=== PATIENT | male | born 1985 | race Caucasian/White ===

== ENCOUNTER 2019-07-05 23:09 | Emergency (ER) | payer SELFPAY ==
[2019-07-05] MEDS ORDERED: Sodium Chloride 0.9% 10 ML Syringe FLUSH PRN (23:30)
[2019-07-05] MEDS ORDERED: levETIRAcetam 1,000 MG in Sodium Chloride 0.9% 100 ML IV ONE (23:35)
--- NOTE | 2019-07-05 23:41 | EDM.PDOC ---
ED HPI GENERAL MEDICAL PROBLEM - General Chief Complaint: Neurological Problem Stated Complaint: MED[facility] Time Seen by Provider: 07/05/19 23:25 Source of Information: Reports: Patient History Limitations: Reports: Other (no old records) - History of Present Illness INITIAL COMMENTS - FREE TEXT/NARRATIVE: 34 yo male recently moved here from [place] about 2 mos ago. Has a known seizure disorder. Did miss a few doses of his meds lately. Last had a seizure a couple days ago. Normally has seizures at a rate of about 1 per week. With his seizure 2 days ago he was not seen because he was home alone when he had it. Today his roommates were present and they called 911. EMS found him to be postictal as he remained on arrival here in the ER. His roommates did not accompany him to the ER so it is not clear how long the seizure lasted. Onset: Today, Sudden Onset Date: 07/05/19 Duration: Other (unknown) Location: Reports: Generalized Quality: Reports: Other (no pain reported.) Severity: Moderate Improves with: Reports: Other (time, was self-limited) Worsens with: Reports: Other (? missing doses of his meds) Context: Reports: Other (has a known seizure disorder) Associated Symptoms: Reports: No Other Symptoms Treatments STOCKKEEPER: Reports: Other (see below) (none) Other Treatments STOCKKEEPER: none - Related Data Allergies Allergy/AdvReac Type Severity Reaction Status Date / Time No Known Allergies Allergy Verified 07/05/19 23:44 Home Meds: Home Meds ARIPiprazole [Abilify] 2 mg PO DAILY 07/05/19 [History] Aspirin [Ecotrin EC] 81 mg PO DAILY 07/05/19 [History] Divalproex Sodium [Depakote] 125 mg PO BID 07/05/19 [History] atoMOXetine [Strattera] 25 mg PO DAILY 07/05/19 [History] levETIRAcetam [Keppra] 500 mg PO BID 07/05/19 [History] ED ROS GENERAL - Review of Systems Review Of Systems: Comprehensive ROS is negative, except as noted in HPI. Neurological: Reports: Seizure - Physical Exam Exam: See Below Exam Limited By: Other (was initially postictal, is now fully alert) General Appearance: Alert, WD/WN, No Apparent Distress, Obese Eye Exam: Bilateral Eye: Normal Inspection Ears: Normal External Exam, Normal Canal, Hearing Grossly Normal, Normal TMs Nose: Normal Inspection, No Blood Throat/Mouth: Normal Inspection, Normal Lips, Normal Oropharynx, Normal Voice, No Airway Compromise, Evidence of Tongue Biting (tip of tongue) Head Exam: Atraumatic, Normocephalic Neck: Normal Inspection Respiratory/Chest: No Respiratory Distress, Lungs Clear, Normal Breath Sounds, No Accessory Muscle Use Cardiovascular: Regular Rate, Rhythm, No Edema GI/Abdominal: Normal Bowel Sounds, Soft, Non-Tender, No Distention Neuro Exam (Abbreviated): Alert, Oriented, CN II-XII Intact, Normal Cognition, No Motor/Sensory Deficits Back Exam: Normal Inspection Extremities: Normal Inspection, Normal Range of Motion, Non-Tender, No Pedal Edema Psychiatric: Normal Affect, Normal Mood Skin Exam: Warm, Dry, Intact, Normal Color, No Rash Course - Vital Signs Last Recorded V/S: Last Vital Signs Temp 36.8 C 07/05/19 23:19 Pulse 102 H 07/05/19 23:26 Resp 17 07/05/19 23:26 BP 144/82 H 07/05/19 23:26 Pulse Ox 93 L 07/05/19 23:26 - Orders/Labs/Meds Orders: Active Orders 24 hr Category Date Time Status Sodium Chloride 0.9% [Saline Flush] Med 07/05/19 23:30 Active 10 ml FLUSH ASDIRECTED PRN Saline Lock Insert [OM.PC] Routine Oth 07/05/19 23:30 Ordered Medication Orders Sodium Chloride (Saline Flush) 10 ml FLUSH ASDIRECTED PRN PRN Reason: Keep Vein Open Last Admin: 07/05/19 23:47 Dose: 10 ml Labs: Laboratory Tests 07/05/19 Range/Units 23:45 Valproic Acid 9.6 L (50.0-100.0) ug/mL Meds: Medications Generic Name Dose Route Start Last Admin Trade Name Freq PRN Reason Stop Dose Admin Sodium Chloride 10 ml 07/05/19 23:30 07/05/19 23:47 Saline Flush FLUSH 10 ml ASDIRECTED PRN Administration Keep Vein Open Discontinued Medications Generic Name Dose Route Start Last Admin Trade Name Freq PRN Reason Stop Dose Admin Divalproex Sodium 500 mg 07/06/19 00:11 07/06/19 00:30 Divalproex Sodium PO 07/06/19 00:12 500 mg ONETIME ONE Administration Levetiracetam 1,000 mg/ Sodium 110 mls @ 400 mls/hr 07/05/19 23:35 07/05/19 23:46 Chloride IV 07/05/19 23:49 400 mls/hr ONETIME ONE Administration Departure - Departure Time of Disposition: 00:50 Disposition: Home, Self-Care 01 Condition: Fair Clinical Impression: Seizure - Discharge Information *PRESCRIPTION DRUG MONITORING PROGRAM REVIEWED*: No *COPY OF PRESCRIPTION DRUG MONITORING REPORT IN PATIENT ANDREA: No Referrals: PCP,None [Primary Care Provider] - Forms: ED Department Discharge Additional Instructions: Resume your usual medications. Recheck in the clinic [facility] to get established if you haven't already. May needed a dosage adjustment on your meds due to the frequency of the seizures you are having. Return as needed. Sepsis Event Note - Evaluation Sepsis Screening Result: No Definite Risk - Focused Exam Vital Signs: Vital Signs Temp Pulse Resp BP Pulse Ox 07/05/19 23:26 102 H 17 144/82 H 93 L 07/05/19 23:19 36.8 C 102 H 19 144/82 H 94 L Date Exam was Performed: 07/06/19 Time Exam was Performed: 00:39 - My Orders Last 24 Hours: My Active Orders 07/05/19 23:30 Sodium Chloride 0.9% [Saline Flush] 10 ml FLUSH ASDIRECTED PRN Saline Lock Insert [OM.PC] Routine - Assessment/Plan Last 24 Hours: My Active Orders 07/05/19 23:30 Sodium Chloride 0.9% [Saline Flush] 10 ml FLUSH ASDIRECTED PRN Saline Lock Insert [OM.PC] Routine
[2019-07-06] MEDS ORDERED: Divalproex Sodium Delayed-Release 250 MG Tab.CR PO ONE (00:11)
== END 2019-07-06 01:03 | disposition home or self-care (01) ==
LOC: JP.ED 23:09
DX: R56.9 Unspecified convulsions (principal); Z79.899 Other long term (current) drug therapy; Z79.82 Long term (current) use of aspirin
CPT/HCPCS: 36415; 80164; 96374; 99284; A9270; J1953; J7050

== ENCOUNTER 2019-07-21 13:33 | Emergency (ER) | payer MEDICARE, MEDICAID ==
[2019-07-21] MEDS ORDERED: Sodium Chloride 0.9% 10 ML Syringe FLUSH ONE (14:25)
--- NOTE | 2019-07-21 14:27 | EDM.PDOC ---
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 He reports that his symptoms started approximately 4 weeks ago. He noticed increasing shortness of breath, especially with exertion, which has been accompanied by pleuritic left sided posterior chest pain. The pain is not exertional. He has noticed some cough during this time, has been productive of green sputum, no real change with this. He is a pack-a-day smoker. He has no known history of lung disease. No fevers or chills. He seems to be a somewhat unreliable historian. When asked why he is not on anticoagulation for DVT, reports this was stopped several months ago for unknown reasons. He actually may be evicted from his apartment tonight but his breathing had become so bad that he needed to come to the emergency room. Left Back Pain Score (Numeric/FACES): 8 - Related Data Allergies Allergy/AdvReac Type Severity Reaction Status Date / Time No Known Allergies Allergy Verified 07/21/19 13:36 Home Meds: Home Meds ARIPiprazole [Abilify] 2 mg PO DAILY 07/05/19 [History] Aspirin [Ecotrin EC] 81 mg PO DAILY 07/05/19 [History] Divalproex Sodium [Depakote] 125 mg PO BID 07/05/19 [History] atoMOXetine [Strattera] 25 mg PO DAILY 07/05/19 [History] levETIRAcetam [Keppra] 500 mg PO BID 07/05/19 [History] Past Medical History Cardiovascular History: Reports: Hypertension Respiratory History: Reports: Sleep Apnea Other Respiratory History: has cpap does not use Neurological History: Reports: Seizure Other Neuro History: seizures daily/weekly Psychiatric History: Reports: ADHD, Depression Endocrine/Metabolic History: Reports: Obesity/BMI 30+ - Infectious Disease History Infectious Disease History: Reports: Chicken Pox - Past Surgical History Head Surgeries/Procedures: Reports: None Cardiovascular Surgical History: Reports: None Respiratory Surgical History: Reports: None Neurological Surgical History: Reports: None Dermatological Surgical History: Reports: None Social & Family History - Family History Family Medical History: Unobtainable - Tobacco Use Smoking Status *Q: Current Every Day Smoker Years of Tobacco use: 20 Packs/Tins Daily: 1 Used Tobacco, but Quit: No Second Hand Smoke Exposure: Yes - Caffeine Use Caffeine Use: Reports: Coffee, Energy Drinks - Recreational Drug Use Recreational Drug Use: Yes Drug Use in Last 12 Months: Yes Recreational Drug Type: Reports: Marijuana/Hashish Recreational Drug Use Frequency: Daily ED ROS GENERAL - Review of Systems Review Of Systems: See Below Constitutional: Reports: No Symptoms HEENT: Reports: No Symptoms Respiratory: Reports: Shortness of Breath, Pleuritic Chest Pain Cardiovascular: Reports: Chest Pain Endocrine: Reports: No Symptoms GI/Abdominal: Reports: No Symptoms : Reports: No Symptoms Musculoskeletal: Reports: No Symptoms Skin: Reports: No Symptoms Neurological: Reports: No Symptoms Psychiatric: Reports: No Symptoms Hematologic/Lymphatic: Reports: No Symptoms Immunologic: Reports: No Symptoms ED EXAM, GENERAL - Physical Exam Exam: See Below Exam Limited By: No Limitations General Appearance: Alert, No Apparent Distress Ears: Normal External Exam Nose: Normal Inspection Throat/Mouth: Normal Inspection Head: Atraumatic, Normocephalic Neck: Normal Inspection Respiratory/Chest: Lungs Clear Cardiovascular: No Murmur, Tachycardia GI/Abdominal: Soft, Non-Tender Back Exam: Normal Inspection Extremities: Normal Inspection, No Pedal Edema Neurological: Alert, Oriented Psychiatric: Normal Affect, Normal Mood Skin Exam: Warm, Dry Course - Vital Signs Last Recorded V/S: Last Vital Signs Temp 36.7 C 07/21/19 13:39 Pulse 85 07/21/19 15:47 Resp 19 07/21/19 15:47 BP 144/75 H 07/21/19 15:47 Pulse Ox 95 07/21/19 15:47 - Orders/Labs/Meds Orders: Active Orders 24 hr Category Date Time Status EKG Documentation Completion [RC] ASDIRECTED Care 07/21/19 14:27 Active Iopamidol [Isovue-370 (76%)] Med 07/21/19 14:30 Active 100 ml IV . DIRECTED Lactated Ringers [Ringers, Lactated] 1,000 ml Med 07/21/19 15:25 Active IV BOLUS Sodium Chloride 0.9% [Normal Saline] 100 ml Med 07/21/19 14:30 Active IV ASDIRECTED EKG 12 Lead [EK] Routine Ther 07/21/19 14:27 Ordered Medication Orders Sodium Chloride (Normal Saline) 100 mls @ 3 mls/sec IV ASDIRECTED SWAPNIL Last Admin: 07/21/19 14:55 Dose: 3 mls/sec Lactated Ringer's (Ringers, Lactated) 1,000 mls @ 1,000 mls/hr IV BOLUS ONE Stop: 07/21/19 16:24 Last Admin: 07/21/19 15:53 Dose: 1,000 mls/hr Iopamidol (Isovue-370 (76%)) 100 ml IV . DIRECTED SWAPNIL Last Admin: 07/21/19 14:55 Dose: 100 ml Labs: Laboratory Tests 07/21/19 07/21/19 07/21/19 Range/Units 14:33 14:33 14:33 WBC 9.6 (4.5-11.0) K/uL RBC 5.20 (4.30-5.90) M/uL Hgb 15.1 H (12.0-15.0) g/dL Hct 45.3 (40.0-54.0) % MCV 87 (80-98) fL MCH 29 (27-31) pg MCHC 33 (32-36) % Plt Count 237 (150-400) K/uL Sodium 137 L (140-148) mmol/L Potassium 3.9 (3.6-5.2) mmol/L Chloride 102 (100-108) mmol/L Carbon Dioxide 26 (21-32) mmol/L Anion Gap 12.9 (5.0-14.0) mmol/L BUN 18 (7-18) mg/dL Creatinine 1.0 (0.8-1.3) mg/dL Est Cr Clr Drug Dosing 103.10 mL/min Estimated GFR (MDRD) > 60 (>60) Glucose 92 (74-106) mg/dL Calcium 8.9 (8.5-10.1) mg/dL Troponin I < 0.017 (0.000-0.056) ng/mL NT-Pro-B Natriuret Pep 44 (5-125) pg/mL Meds: Medications Generic Name Dose Route Start Last Admin Trade Name Freq PRN Reason Stop Dose Admin Sodium Chloride 100 mls @ 3 mls/sec 07/21/19 14:30 07/21/19 14:55 Normal Saline IV 3 mls/sec ASDIRECTED SWAPNIL Administration Lactated Ringer's 1,000 mls @ 1,000 mls/hr 07/21/19 15:25 07/21/19 15:53 Ringers, Lactated IV 07/21/19 16:24 1,000 mls/hr BOLUS ONE Administration Iopamidol 100 ml 07/21/19 14:30 07/21/19 14:55 Isovue-370 (76%) IV 100 ml . DIRECTED SWAPNIL Administration Discontinued Medications Generic Name Dose Route Start Last Admin Trade Name Freq PRN Reason Stop Dose Admin Sodium Chloride 10 ml 07/21/19 14:25 07/21/19 14:55 Saline Flush FLUSH 07/21/19 14:26 10 ml ONETIME ONE Administration - Re-Assessments/Exams Free Text/Narrative Re-Assessment/Exam: This is a 34-year-old male with history of DVT who presents with pleuritic left- sided chest pain and dyspnea. On exam he is found to tachycardic in the low 100s, O2 sat in the low 90s, stable BP. Pulmonary exam is unremarkable. Given his history of DVT, unclear why he is not anticoagulated at this time, his pretest probability for PE is relatively so will proceed with a CTA of the chest. Additionally we will gather basic labs as well as an EKG. 07/21/19 14:28 Free Text/Narrative Re-Assessment/Exam: Imaging, labs, EKG unremarkable. Trop negative after days of symptoms and this does not sound like ACS Patient know reports that he has been asymptomatic since being in the ED HR normalized with IVF Safe for discharge. Provided albuterol MDI for prn basis 07/21/19 16:12 Departure - Departure Time of Disposition: 16:11 Disposition: Home, Self-Care 01 Clinical Impression: Shortness of breath - Discharge Information *PRESCRIPTION DRUG MONITORING PROGRAM REVIEWED*: No *COPY OF PRESCRIPTION DRUG MONITORING REPORT IN PATIENT ANDREA: No Referrals: PCP,None [Primary Care Provider] - Forms: ED Department Discharge Additional Instructions: We did not find a cause for your symptoms on your evaluation in the ER today Please do a trial of the provided inhaler We have placed a referral for you to get a primary doctor Sepsis Event Note - Evaluation Sepsis Screening Result: No Definite Risk - Focused Exam Vital Signs: Vital Signs Temp Pulse Resp BP Pulse Ox 07/21/19 15:47 85 19 144/75 H 95 07/21/19 15:17 84 140/78 07/21/19 14:26 99 133/81 07/21/19 14:11 102 H 14 128/92 H 85 L 07/21/19 13:58 102 H 13 138/84 96 07/21/19 13:43 107 H 14 138/90 97 07/21/19 13:39 36.7 C 104 H 14 206/87 H 97 07/21/19 13:37 36.7 C 104 H 14 206/87 H 97 Date Exam was Performed: 07/21/19 Time Exam was Performed: 16:10 - My Orders Last 24 Hours: My Active Orders 07/21/19 14:27 EKG Documentation Completion [RC] ASDIRECTED EKG 12 Lead [EK] Routine 07/21/19 14:30 Iopamidol [Isovue-370 (76%)] 100 ml IV . DIRECTED Sodium Chloride 0.9% [Normal Saline] 100 ml IV ASDIRECTED 07/21/19 15:25 Lactated Ringers [Ringers, Lactated] 1,000 ml IV BOLUS - Assessment/Plan Last 24 Hours: My Active Orders 07/21/19 14:27 EKG Documentation Completion [RC] ASDIRECTED EKG 12 Lead [EK] Routine 07/21/19 14:30 Iopamidol [Isovue-370 (76%)] 100 ml IV . DIRECTED Sodium Chloride 0.9% [Normal Saline] 100 ml IV ASDIRECTED 07/21/19 15:25 Lactated Ringers [Ringers, Lactated] 1,000 ml IV BOLUS
[2019-07-21] MEDS ORDERED: Sodium Chloride 0.9% 100 ML IV SCH (14:30)
[2019-07-21] MEDS ORDERED: Iopamidol 755 Mg/ML 100 ML Bottle IV SCH (14:30)
--- NOTE | 2019-07-21 15:23 | CRLCT ---
INDICATION: Left posterior pleuritic chest pain, dyspnea COMPARISON: None TECHNIQUE: Contrast enhanced axial CT imaging through the chest, optimized for assessment of the pulmonary arterial tree. 100 mL Isovue 370 contrast agent was administered intravenously. Sagittal and coronal reconstructions are provided. FINDINGS: There is adequate opacification of the pulmonary arterial tree without evidence of thromboembolism. There is normal caliber of the main pulmonary artery and thoracic aorta. The heart is normal in size. There is no pericardial effusion. There is no mediastinal lymphadenopathy. The lungs are clear. There is no pleural effusion or pneumothorax. The included osseous structures are unremarkable. In the upper abdomen, note is made of diffusely decreased attenuation of the liver parenchyma, compatible with steatosis IMPRESSION: 1. No evidence of pulmonary thromboembolism or other acute intrathoracic process. 2. Hepatic steatosis. Please note that all CT scans at this facility use dose modulation, iterative reconstruction, and/or weight-based dosing when appropriate to reduce radiation dose to as low as reasonably achievable. Dictated by Donald Leavitt MD @ Jul 21 2019 3:16PM Signed by Dr. Donald Leavitt @ Jul 21 2019 3:22PM
[2019-07-21] MEDS ORDERED: Lactated Ringers 1,000 ML IV ONE (15:25)
[2019-07-21] MEDS ORDERED: Albuterol 8 GM Inhaler INH ONE (16:13)
== END 2019-07-21 16:43 | disposition home or self-care (01) ==
LOC: JP.ED 13:33
DX: R06.02 Shortness of breath (principal); I10 Essential (primary) hypertension; F17.210 Nicotine dependence, cigarettes, uncomplicated; Z79.899 Other long term (current) drug therapy; Z79.82 Long term (current) use of aspirin
CPT/HCPCS: 36415; 71275; 80048; 83880; 84484; 85027; 93005; 93010; 94640; 96360; 99284; 99285; A9270; J7050; J7120; Q9967

== ENCOUNTER 2019-08-05 11:20 | Emergency (ER) | payer MEDICAID, OTHER ==
--- NOTE | 2019-08-05 12:35 | EDM.PDOC ---
ED HPI GENERAL MEDICAL PROBLEM - General Chief Complaint: Respiratory Problem Stated Complaint: MEDICAL [facility]IA [facility] Time Seen by Provider: 08/05/19 12:35 Source of Information: Reports: Patient History Limitations: Reports: No Limitations - History of Present Illness INITIAL COMMENTS - FREE TEXT/NARRATIVE: pt arrived from work by ambulance. He was not able to get his breath. He feels the cold air aggrivatd the problem. He had a similar episode 2 weeks ago. Onset: Today, Sudden Duration: Hour(s): Location: Reports: Chest, Generalized Associated Symptoms: Reports: Cough, Shortness of Breath, Other (pt has a history of sleep apnea. ) Chest Pain Score (Numeric/FACES): 1 - Related Data Allergies Allergy/AdvReac Type Severity Reaction Status Date / Time No Known Allergies Allergy Verified 08/05/19 11:21 Home Meds: Home Meds ARIPiprazole [Abilify] 2 mg PO DAILY 07/05/19 [History] Aspirin [Ecotrin EC] 81 mg PO DAILY 07/05/19 [History] Divalproex Sodium [Depakote] 125 mg PO BID 07/05/19 [History] atoMOXetine [Strattera] 25 mg PO DAILY 07/05/19 [History] levETIRAcetam [Keppra] 500 mg PO BID 07/05/19 [History] Albuterol [Ventolin HFA] 1 gm IH QID PRN 08/05/19 [History] Past Medical History Cardiovascular History: Reports: Hypertension Respiratory History: Reports: Sleep Apnea Other Respiratory History: has cpap does not use Neurological History: Reports: Seizure Other Neuro History: seizures daily/weekly Psychiatric History: Reports: ADHD, Depression Endocrine/Metabolic History: Reports: Obesity/BMI 30+ - Infectious Disease History Infectious Disease History: Reports: Chicken Pox - Past Surgical History Head Surgeries/Procedures: Reports: None Cardiovascular Surgical History: Reports: None Respiratory Surgical History: Reports: None Endocrine Surgical History: Reports: None Neurological Surgical History: Reports: None Dermatological Surgical History: Reports: None Social & Family History - Family History Family Medical History: Unobtainable - Tobacco Use Smoking Status *Q: Current Every Day Smoker Years of Tobacco use: 15 Packs/Tins Daily: 1 Used Tobacco, but Quit: No Second Hand Smoke Exposure: Yes - Caffeine Use Caffeine Use: Reports: Coffee, Energy Drinks - Recreational Drug Use Recreational Drug Use: Yes Recreational Drug Type: Reports: Marijuana/Hashish Recreational Drug Use Frequency: Daily ED ROS GENERAL - Review of Systems Review Of Systems: See Below Constitutional: Reports: Chills, Malaise, Weakness, Diaphoresis HEENT: Reports: No Symptoms Respiratory: Reports: Shortness of Breath, Wheezing, Cough Cardiovascular: Reports: No Symptoms Endocrine: Reports: No Symptoms GI/Abdominal: Reports: No Symptoms : Reports: No Symptoms Musculoskeletal: Reports: No Symptoms Skin: Reports: No Symptoms ED EXAM, GENERAL - Physical Exam Exam: See Below Free Text/Narrative:: pt arrived after having a episode of sob at work. He went into a coughing spell and he couldn,t stop. He felt very sob. . He was very diaphoretic at that time. Exam Limited By: Respiratory Distress General Appearance: Alert, Anxious, Moderate Distress Ears: Normal TMs Nose: Normal Inspection Throat/Mouth: Normal Inspection Head: Atraumatic Neck: Normal Inspection Respiratory/Chest: Decreased Breath Sounds, Rhonchi, Wheezing, Other ( this was noted at the rt lower lung field. His wbc is not elevated. ) Cardiovascular: Regular Rate, Rhythm, Tachycardia GI/Abdominal: Soft, Non-Tender (Male) Exam: Deferred Rectal (Males) Exam: Deferred Back Exam: Normal Inspection Extremities: Normal Inspection Neurological: Alert, Oriented, Normal Cognition, Other (pt has known sleep apnea which he is not been doing a good job with using his equipment) Psychiatric: Normal Affect Course - Vital Signs Last Recorded V/S: Last Vital Signs Temp 36.0 C 08/05/19 15:02 Pulse 89 08/05/19 16:49 Resp 12 08/05/19 16:49 BP 145/77 H 08/05/19 16:49 Pulse Ox 95 08/05/19 16:49 - Orders/Labs/Meds Labs: Laboratory Tests 08/05/19 08/05/19 08/05/19 Range/Units 12:35 12:40 12:41 WBC (4.5-11.0) K/uL RBC (4.30-5.90) M/uL Hgb (12.0-15.0) g/dL Hct (40.0-54.0) % MCV (80-98) fL MCH (27-31) pg MCHC (32-36) % Plt Count (150-400) K/uL Neut % (Auto) (36-66) % Lymph % (Auto) (24-44) % [place] % (Auto) (2-6) % Eos % (Auto) (2-4) % Baso % (Auto) (0-1) % D-Dimer, Quantitative (0.0-400.0) ng/mL ABG Hemoglobin 13.8 (13.5-18.0) g/dL ABG Oxyhemoglobin 59.9 % ABG Carboxyhemoglobin 2.2 H (0.0-1.6) % ABG Methemoglobin 0.8 % VBG pH 7.437 (7.350-7.450) VBG pCO2 38.8 mm/Hg VBG pO2 33.8 mm/Hg VBG HCO3 25.7 mmol/L VBG Total CO2 22.8 mmol/L VBG O2 Saturation 61.8 VBG O2 Content 11.6 %vol VBG Base Excess 2.0 mm/L O2 Delivery Device Room air Sodium (140-148) mmol/L Potassium (3.6-5.2) mmol/L Chloride (100-108) mmol/L Carbon Dioxide (21-32) mmol/L Anion Gap (5.0-14.0) mmol/L BUN (7-18) mg/dL Creatinine (0.8-1.3) mg/dL Est Cr Clr Drug Dosing mL/min Estimated GFR (MDRD) (>60) Glucose (74-106) mg/dL Calcium (8.5-10.1) mg/dL Total Bilirubin (0.2-1.0) mg/dL AST (15-37) U/L ALT (12-78) U/L Alkaline Phosphatase (46-116) U/L Total Protein (6.4-8.2) g/dL Albumin (3.4-5.0) g/dL Globulin (2.3-3.5) g/dL Albumin/Globulin Ratio (1.2-2.2) Urine Color Yellow (YELLOW) Urine Appearance Clear (CLEAR) Urine pH 5.5 (5.0-8.0) Ur Specific Pace 1.015 (1.008-1.030) Urine Protein Negative (NEGATIVE) mg/dL Urine Glucose (UA) Negative (NEGATIVE) mg/dL Urine Ketones Negative (NEGATIVE) mg/dL Urine Occult Blood Negative (NEGATIVE) Urine Nitrite Negative (NEGATIVE) Urine Bilirubin Negative (NEGATIVE) Urine Urobilinogen 0.2 (0.2-1.0) EU/dL Ur Leukocyte Esterase Negative (NEGATIVE) Urine RBC Not seen (0-5) Urine WBC Not seen (0-5) Ur Epithelial Cells Not seen Amorphous Sediment Rare Urine Bacteria Not seen Urine Mucus Not seen Urine Opiates Screen (NEGATIVE) Ur Oxycodone Screen (NEGATIVE) Urine Methadone Screen (NEGATIVE) Ur Propoxyphene Screen (NEGATIVE) Ur Barbiturates Screen (NEGATIVE) Valproic Acid 50.9 (50.0-100.0) ug/mL Ur Tricyclics Screen (NEGATIVE) Levetiracetam (10.0-40.0) ug/mL Ur Phencyclidine Scrn (NEGATIVE) Ur Amphetamine Screen (NEGATIVE) U Methamphetamines Scrn (NEGATIVE) Urine MDMA Screen (NEGATIVE) U Benzodiazepines Scrn (NEGATIVE) U Cocaine Metab Screen (NEGATIVE) U Marijuana (THC) Screen (NEGATIVE) 08/05/19 08/05/19 08/05/19 Range/Units 12:41 12:48 12:48 WBC 7.3 (4.5-11.0) K/uL RBC 4.55 (4.30-5.90) M/uL Hgb 13.2 (12.0-15.0) g/dL Hct 40.5 (40.0-54.0) % MCV 89 (80-98) fL MCH 29 (27-31) pg MCHC 33 (32-36) % Plt Count 348 (150-400) K/uL Neut % (Auto) 65 (36-66) % Lymph % (Auto) 25 (24-44) % [place] % (Auto) 8 H (2-6) % Eos % (Auto) 1 L (2-4) % Baso % (Auto) 1 (0-1) % D-Dimer, Quantitative (0.0-400.0) ng/mL ABG Hemoglobin (13.5-18.0) g/dL ABG Oxyhemoglobin % ABG Carboxyhemoglobin (0.0-1.6) % ABG Methemoglobin % VBG pH (7.350-7.450) VBG pCO2 mm/Hg VBG pO2 mm/Hg VBG HCO3 mmol/L VBG Total CO2 mmol/L VBG O2 Saturation VBG O2 Content %vol VBG Base Excess mm/L O2 Delivery Device Sodium 139 L (140-148) mmol/L Potassium 4.5 (3.6-5.2) mmol/L Chloride 101 (100-108) mmol/L Carbon Dioxide 27 (21-32) mmol/L Anion Gap 15.5 H (5.0-14.0) mmol/L BUN 14 (7-18) mg/dL Creatinine 0.9 (0.8-1.3) mg/dL Est Cr Clr Drug Dosing 114.56 mL/min Estimated GFR (MDRD) > 60 (>60) Glucose 74 (74-106) mg/dL Calcium 8.9 (8.5-10.1) mg/dL Total Bilirubin 0.2 (0.2-1.0) mg/dL AST 35 (15-37) U/L ALT 63 (12-78) U/L Alkaline Phosphatase 61 (46-116) U/L Total Protein 8.2 (6.4-8.2) g/dL Albumin 3.3 L (3.4-5.0) g/dL Globulin 4.9 H (2.3-3.5) g/dL Albumin/Globulin Ratio 0.7 L (1.2-2.2) Urine Color (YELLOW) Urine Appearance (CLEAR) Urine pH (5.0-8.0) Ur Specific Pace (1.008-1.030) Urine Protein (NEGATIVE) mg/dL Urine Glucose (UA) (NEGATIVE) mg/dL Urine Ketones (NEGATIVE) mg/dL Urine Occult Blood (NEGATIVE) Urine Nitrite (NEGATIVE) Urine Bilirubin (NEGATIVE) Urine Urobilinogen (0.2-1.0) EU/dL Ur Leukocyte Esterase (NEGATIVE) Urine RBC (0-5) Urine WBC (0-5) Ur Epithelial Cells Amorphous Sediment Urine Bacteria Urine Mucus Urine Opiates Screen Negative (NEGATIVE) Ur Oxycodone Screen Negative (NEGATIVE) Urine Methadone Screen Negative (NEGATIVE) Ur Propoxyphene Screen Negative (NEGATIVE) Ur Barbiturates Screen Negative (NEGATIVE) Valproic Acid (50.0-100.0) ug/mL Ur Tricyclics Screen Negative (NEGATIVE) Levetiracetam (10.0-40.0) ug/mL Ur Phencyclidine Scrn Negative (NEGATIVE) Ur Amphetamine Screen Negative (NEGATIVE) U Methamphetamines Scrn Negative (NEGATIVE) Urine MDMA Screen Negative (NEGATIVE) U Benzodiazepines Scrn Negative (NEGATIVE) U Cocaine Metab Screen Negative (NEGATIVE) U Marijuana (THC) Screen Negative (NEGATIVE) 08/05/19 08/05/19 Range/Units 12:48 13:08 WBC (4.5-11.0) K/uL RBC (4.30-5.90) M/uL Hgb (12.0-15.0) g/dL Hct (40.0-54.0) % MCV (80-98) fL MCH (27-31) pg MCHC (32-36) % Plt Count (150-400) K/uL Neut % (Auto) (36-66) % Lymph % (Auto) (24-44) % [place] % (Auto) (2-6) % Eos % (Auto) (2-4) % Baso % (Auto) (0-1) % D-Dimer, Quantitative 929 H (0.0-400.0) ng/mL ABG Hemoglobin (13.5-18.0) g/dL ABG Oxyhemoglobin % ABG Carboxyhemoglobin (0.0-1.6) % ABG Methemoglobin % VBG pH (7.350-7.450) VBG pCO2 mm/Hg VBG pO2 mm/Hg VBG HCO3 mmol/L VBG Total CO2 mmol/L VBG O2 Saturation VBG O2 Content %vol VBG Base Excess mm/L O2 Delivery Device Sodium (140-148) mmol/L Potassium (3.6-5.2) mmol/L Chloride (100-108) mmol/L Carbon Dioxide (21-32) mmol/L Anion Gap (5.0-14.0) mmol/L BUN (7-18) mg/dL Creatinine (0.8-1.3) mg/dL Est Cr Clr Drug Dosing mL/min Estimated GFR (MDRD) (>60) Glucose (74-106) mg/dL Calcium (8.5-10.1) mg/dL Total Bilirubin (0.2-1.0) mg/dL AST (15-37) U/L ALT (12-78) U/L Alkaline Phosphatase (46-116) U/L Total Protein (6.4-8.2) g/dL Albumin (3.4-5.0) g/dL Globulin (2.3-3.5) g/dL Albumin/Globulin Ratio (1.2-2.2) Urine Color (YELLOW) Urine Appearance (CLEAR) Urine pH (5.0-8.0) Ur Specific Pace (1.008-1.030) Urine Protein (NEGATIVE) mg/dL Urine Glucose (UA) (NEGATIVE) mg/dL Urine Ketones (NEGATIVE) mg/dL Urine Occult Blood (NEGATIVE) Urine Nitrite (NEGATIVE) Urine Bilirubin (NEGATIVE) Urine Urobilinogen (0.2-1.0) EU/dL Ur Leukocyte Esterase (NEGATIVE) Urine RBC (0-5) Urine WBC (0-5) Ur Epithelial Cells Amorphous Sediment Urine Bacteria Urine Mucus Urine Opiates Screen (NEGATIVE) Ur Oxycodone Screen (NEGATIVE) Urine Methadone Screen (NEGATIVE) Ur Propoxyphene Screen (NEGATIVE) Ur Barbiturates Screen (NEGATIVE) Valproic Acid (50.0-100.0) ug/mL Ur Tricyclics Screen (NEGATIVE) Levetiracetam 11.4 (10.0-40.0) ug/mL Ur Phencyclidine Scrn (NEGATIVE) Ur Amphetamine Screen (NEGATIVE) U Methamphetamines Scrn (NEGATIVE) Urine MDMA Screen (NEGATIVE) U Benzodiazepines Scrn (NEGATIVE) U Cocaine Metab Screen (NEGATIVE) U Marijuana (THC) Screen (NEGATIVE) Meds: Medications Discontinued Medications Generic Name Dose Route Start Last Admin Trade Name Freq PRN Reason Stop Dose Admin Albuterol 2.5 mg 08/05/19 13:28 08/05/19 13:56 Proventil [facility] 08/05/19 13:29 2.5 mg ONETIME ONE Administration Albuterol 2.5 mg 08/05/19 15:04 08/05/19 15:22 Proventil Neb Soln [facility] 08/05/19 15:05 2.5 mg ONETIME ONE Administration Sodium Chloride 1,000 mls @ 999 mls/hr 08/05/19 15:00 08/05/19 15:21 Normal Saline IV 999 mls/hr ASDIRECTED SWAPNIL Administration Ceftriaxone Sodium 1 gm/ 50 mls @ 100 mls/hr 08/05/19 15:35 08/05/19 16:02 Sodium Chloride IV 08/05/19 16:04 100 mls/hr ONETIME ONE Administration - Re-Assessments/Exams Free Text/Narrative Re-Assessment/Exam: 08/05/19 15:12 pt had a wbc which was 4,500 He has had a marked cough. He has a known seizure disorder and does not think he has had recent seizures. His o2 sats have been in the low 90s. He has been very diaphoretic. He has had several episodes where he has gotten sob.pt thus far has not been very compliant with his meds. 08/05/19 15:39 Departure - Departure Time of Disposition: 15:15 Disposition: Home, Self-Care 01 Condition: Fair Clinical Impression: Right lower lobe pneumonia, Sleep apnea, Seizure disorder - Discharge Information Instructions: Community-Acquired Pneumonia, Adult, [id number] Referrals: PCP,None [Primary Care Provider] - Forms: ED Department Discharge Care Plan Goals: albuterol neb q6h, robitussin ac 1-2 tsp as needed for cough--q6h, zithromax 500 mg now and then 250 daily for 6 days, [id number] bid, no work for thr next 3 days, use the sleep apnea equipment regularly, push fluids, continue with seizure meds as ordered. stop vaping. Hospital admission was discussed with the hospitalist and he felt that we should try as an outpt. he was refered to Dr Golden. Sepsis Event Note - Evaluation Sepsis Screening Result: No Definite Risk - Focused Exam Date Exam was Performed: 08/08/19 Time Exam was Performed: 10:09
[2019-08-05] MEDS ORDERED: Albuterol 0.083% 2.5 MG/3 ML Neb Soln NEB ONE ×2 (13:28→15:04)
--- NOTE | 2019-08-05 14:49 | CRLCR ---
INDICATION: Shortness of breath. TECHNIQUE: Two views of the chest PA and lateral. COMPARISON: Prior CT of the chest 07/21/2019. FINDINGS: External monitoring leads are seen overlying the patient. Heart and mediastinum are unchanged. There is a large consolidation at the right lung base predominantly within the right lower lobe suspicious for acute pneumonia. No significant pleural effusions or pneumothorax. IMPRESSION: Large consolidation right lung base suspicious for acute pneumonia. Dictated by Anil Collado MD @ Aug 05 2019 2:46PM Signed by Dr. Anil Collado @ Aug 05 2019 2:49PM
[2019-08-05] MEDS ORDERED: Sodium Chloride 0.9% 1,000 ML IV SCH (15:00)
[2019-08-05] MEDS ORDERED: cefTRIAXone 1 GM in Sodium Chloride 0.9% 50 ML IV ONE (15:35)
== END 2019-08-05 16:59 | disposition home or self-care (01) ==
LOC: JP.ED 11:20
DX: G40.909 Epilepsy, unspecified, not intractable, without status epilepticus (principal); J18.9 Pneumonia, unspecified organism; G47.30 Sleep apnea, unspecified; I10 Essential (primary) hypertension; F17.210 Nicotine dependence, cigarettes, uncomplicated; Z79.82 Long term (current) use of aspirin; Z79.899 Other long term (current) drug therapy
CPT/HCPCS: 36415; 71046; 80053; 80164; 80177; 80305; 81001; 82803; 85025; 85379; 87804; 94640; 96361; 96365; 99285; J0696; J7030; J7050

== ENCOUNTER 2019-08-24 17:42 | Emergency (ER) | payer MEDICARE, MEDICAID ==
[2019-08-24] MEDS ORDERED: fentaNYL 100 MCG/2 ML SDV ONE (18:04)
[2019-08-24] MEDS ORDERED: Sodium Chloride 0.9% 10 ML Syringe FLUSH ONE (18:16)
[2019-08-24] MEDS ORDERED: fentaNYL 100 MCG/2 ML SDV IVPUSH ONE (18:18)
[2019-08-24] MEDS ORDERED: Iopamidol 612 MG/ML 100 ML Bottle IV SCH (18:30)
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
--- NOTE | 2019-08-25 08:46 | CR ---
CHEST: Portable to 10/09/2019 at 0605 CLINICAL HISTORY:Trauma COMPARISON:08/05/2019 FINDINGS: Heart size and pulmonary vascularity are normal. There is less than optimal inspiration which exaggerates the basal lung markings. There is some minimal residual patchy density in the right lower lobe from previous pneumonia seen earlier. No pleural effusion or pneumothorax seen. Impression: Limited portable chest Minimal residual patchy density right lower lobe
== END 2019-08-24 20:15 | disposition home or self-care (01) ==
LOC: JP.ED 17:42
DX: S22.41XA Multiple fractures of ribs, right side, 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 for closed fracture (principal); I10 Essential (primary) hypertension; F32.9 Major depressive disorder, single episode, unspecified; F90.9 Attention-deficit hyperactivity disorder, unspecified type; G40.909 Epilepsy, unspecified, not intractable, without status epilepticus; E66.9 Obesity, unspecified; Z68.41 Body mass index [BMI] 40.0-44.9, adult; Z79.82 Long term (current) use of aspirin; Z79.899 Other long term (current) drug therapy; V86.52XA Driver of snowmobile injured in nontraffic accident, 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
CPT/HCPCS: 36415; 70450; 71045; 71260; 74177; 80053; 85027; 85610; 86850; 86900; 86901; 96374; 99285; J3010; J7050; Q9967

== ENCOUNTER 2019-08-30 01:03 | Emergency (ER) | payer MEDICARE, MEDICAID ==
[2019-08-30] MEDS ORDERED: Ketorolac 60 MG/2 ML SDV IM ONE (01:23)
[2019-08-30] MEDS ORDERED: Acetaminophen/HYDROcodone 325-5 MG Tab PO ONE (01:23)
--- NOTE | 2019-08-30 01:36 | EDM.PDOC ---
ED HPI GENERAL MEDICAL PROBLEM - General Chief Complaint: General Stated Complaint: MEDICAL VIA NORTH Time Seen by Provider: 08/30/19 01:25 Source of Information: Reports: Patient, EMS, Old Records History Limitations: Reports: No Limitations - History of Present Illness INITIAL COMMENTS - FREE TEXT/NARRATIVE: 34 yo male arrives via EMS for evaluation of R sided rib pain. He was here about a week ago and was given a few pain pills for rib fx's dx on that visit. He is a smoker and notes that the pain is severe with coughing. Has not followed up in the clinic. Is out of his pain meds. Not SOB. No fever. Onset: Sudden Onset Date: 08/24/19 Duration: Day(s):, Getting Worse Location: Reports: Chest (R side) Quality: Reports: Sharp Severity: Severe Improves with: Reports: Medication Worsens with: Reports: Movement Context: Reports: Trauma Associated Symptoms: Reports: No Other Symptoms Treatments CHARGE LPN: Reports: Other (see below) (OTC analgesia) Left Chest Pain Score (Numeric/FACES): 10 - Related Data Allergies Allergy/AdvReac Type Severity Reaction Status Date / Time No Known Allergies Allergy Verified 08/30/19 01:20 Home Meds: Home Meds ARIPiprazole [Abilify] 2 mg PO DAILY 07/05/19 [History] Aspirin [Ecotrin EC] 81 mg PO DAILY 07/05/19 [History] Divalproex Sodium [Depakote] 125 mg PO BID 07/05/19 [History] atoMOXetine [Strattera] 25 mg PO DAILY 07/05/19 [History] levETIRAcetam [Keppra] 500 mg PO BID 07/05/19 [History] Albuterol [Ventolin HFA] 1 gm IH QID PRN 08/05/19 [History] Past Medical History Cardiovascular History: Reports: Hypertension Respiratory History: Reports: Sleep Apnea Other Respiratory History: has cpap does not use Neurological History: Reports: Seizure Other Neuro History: seizures daily/weekly Psychiatric History: Reports: ADHD, Depression Endocrine/Metabolic History: Reports: Obesity/BMI 30+ - Infectious Disease History Infectious Disease History: Reports: Chicken Pox - Past Surgical History Head Surgeries/Procedures: Reports: None Cardiovascular Surgical History: Reports: None Respiratory Surgical History: Reports: None Endocrine Surgical History: Reports: None Neurological Surgical History: Reports: None Dermatological Surgical History: Reports: None Social & Family History - Family History Family Medical History: Unobtainable - Tobacco Use Smoking Status *Q: Current Every Day Smoker Years of Tobacco use: 20 Packs/Tins Daily: 1 Used Tobacco, but Quit: No Second Hand Smoke Exposure: Yes - Caffeine Use Caffeine Use: Reports: Soda - Recreational Drug Use Recreational Drug Use: No ED ROS GENERAL - Review of Systems Review Of Systems: See Below Constitutional: Reports: No Symptoms HEENT: Reports: No Symptoms Respiratory: Reports: Pleuritic Chest Pain, Cough (chronic, smoker). Denies: Sputum Cardiovascular: Reports: No Symptoms GI/Abdominal: Reports: No Symptoms : Reports: No Symptoms Musculoskeletal: Reports: No Symptoms Skin: Reports: No Symptoms Neurological: Reports: No Symptoms ED EXAM, GENERAL - Physical Exam Exam: See Below Exam Limited By: No Limitations General Appearance: Alert, WD/WN, No Apparent Distress Eye Exam: Bilateral Eye: Normal Inspection Ears: Normal External Exam, Normal Canal, Hearing Grossly Normal Ear Exam: Bilateral Ear: Auricle Normal, Canal Normal Nose: Normal Inspection, No Blood Throat/Mouth: Normal Inspection, Normal Lips, Normal Oropharynx, Normal Voice, No Airway Compromise Head: Atraumatic, Normocephalic Neck: Normal Inspection Respiratory/Chest: No Respiratory Distress, Lungs Clear, Normal Breath Sounds, No Accessory Muscle Use Cardiovascular: Regular Rate, Rhythm, No Edema Back Exam: Normal Inspection. No: CVA Tenderness (R), CVA Tenderness (L) Extremities: Normal Inspection, Normal Range of Motion, Non-Tender, No Pedal Edema Neurological: Alert, Oriented, CN II-XII Intact, Normal Cognition, No Motor/ Sensory Deficits Psychiatric: Normal Affect, Normal Mood Skin Exam: Warm, Dry, Intact, Normal Color, No Rash Course - Vital Signs Last Recorded V/S: Last Vital Signs Temp 36.2 C 08/30/19 01:19 Pulse 94 08/30/19 01:19 Resp 16 08/30/19 01:19 BP 140/85 08/30/19 01:19 Pulse Ox 96 08/30/19 01:19 - Orders/Labs/Meds Meds: Medications Discontinued Medications Generic Name Dose Route Start Last Admin Trade Name Freq PRN Reason Stop Dose Admin Hydrocodone Bitart/Acetaminophen 1 tab 08/30/19 01:23 08/30/19 01:33 [place] 325-5 Mg PO 08/30/19 01:24 1 tab ONETIME ONE Administration Ketorolac Tromethamine 60 mg 08/30/19 01:23 08/30/19 01:34 Toradol IM 08/30/19 01:24 60 mg ONETIME ONE Administration Departure - Departure Time of Disposition: 02:25 Disposition: Home, Self-Care 01 Condition: Fair Clinical Impression: Ribs, multiple fractures Qualifiers: Encounter type: subsequent encounter Fracture type: closed Laterality: right Fracture healing: with routine healing Qualified Code(s): S22.41XD - Multiple fractures of ribs, right side, subsequent encounter for fracture with routine healing - Discharge Information *PRESCRIPTION DRUG MONITORING PROGRAM REVIEWED*: No *COPY OF PRESCRIPTION DRUG MONITORING REPORT IN PATIENT ANDREA: No Referrals: PCP,None [Primary Care Provider] - Forms: ED Department Discharge Additional Instructions: Take ibuprofen 600 mg every 6 hrs with food for pain relief. Add acetaminophen up to 1000 mg every 6 hrs for added relief. If still more pain relief is required, substitute [place] for acetaminophen. No smoking. Recheck in the clinic this next week. Activity as tolerated. Sepsis Event Note - Evaluation Sepsis Screening Result: No Definite Risk - Focused Exam Vital Signs: Vital Signs Temp Pulse Resp BP Pulse Ox 08/30/19 01:19 36.2 C 94 16 140/85 96 Date Exam was Performed: 08/30/19 Time Exam was Performed: 02:25
== END 2019-08-30 02:20 | disposition home or self-care (01) ==
LOC: JP.ED 01:03
DX: S22.41XD Multiple fractures of ribs, right side, subsequent encounter for fracture with routine healing (principal); E66.9 Obesity, unspecified; G40.909 Epilepsy, unspecified, not intractable, without status epilepticus; I10 Essential (primary) hypertension; F90.9 Attention-deficit hyperactivity disorder, unspecified type; F17.210 Nicotine dependence, cigarettes, uncomplicated; Z79.82 Long term (current) use of aspirin; Z79.899 Other long term (current) drug therapy; Z68.41 Body mass index [BMI] 40.0-44.9, adult; V86.92XD Unspecified occupant of snowmobile injured in nontraffic accident, subsequent encounter
CPT/HCPCS: 96372; 99283; A9270-GY; J1885

== ENCOUNTER 2019-11-09 09:10 | Emergency (ER) | payer MEDICARE, MEDICAID ==
--- NOTE | 2019-11-09 09:47 | EDM.PDOC ---
ED HPI GENERAL MEDICAL PROBLEM - General Chief Complaint: Lower Extremity Injury/Pain Stated Complaint: LEFT LEG PAIN CLINIC AT BLOOD CLOTS Time Seen by Provider: 11/09/19 09:35 Source of Information: Reports: Patient, Old Records, RN History Limitations: Reports: No Limitations - History of Present Illness INITIAL COMMENTS - FREE TEXT/NARRATIVE: 34 yo male as dx in the clinic a couple weeks ago with phlebitis of the L leg. He has been taking ASA 2-3 tabs per day as his only tx and his sx's are worsening. No fever or SOB. He called the clinic today to report worsening of his sx's and was told to come to the ER. Onset: Gradual Duration: Week(s):, Getting Worse Location: Reports: Lower Extremity, Left Quality: Reports: Ache Severity: Moderate Improves with: Reports: None Worsens with: Reports: Other (time) Context: Reports: Other (See HPI) Associated Symptoms: Reports: No Other Symptoms Treatments INTERVENTIONAL RADIOLOGY TECHNOLOGIST: Reports: Aspirin Left Leg Pain Score (Numeric/FACES): 10 - Related Data Allergies Allergy/AdvReac Type Severity Reaction Status Date / Time No Known Allergies Allergy Verified 08/30/19 01:20 Home Meds: Home Meds ARIPiprazole [Abilify] 2 mg PO DAILY 07/05/19 [History] Aspirin [Ecotrin EC] 81 mg PO DAILY 07/05/19 [History] Divalproex Sodium [Depakote] 500 mg PO BID 07/05/19 [History] atoMOXetine [Strattera] 25 mg PO DAILY 07/05/19 [History] levETIRAcetam [Keppra] 500 mg PO BID 07/05/19 [History] Albuterol [Ventolin HFA] 1 gm IH QID PRN 08/05/19 [History] Acetaminophen/HYDROcodone [[place] 325-5 MG] 1 tab PO Q4H PRN #24 tab 11/09/19 [Rx ] Felbamate [Felbatol] 600 mg PO TID 11/09/19 [History] Rivaroxaban [Xarelto] 15 mg PO Q12H #42 tab 11/09/19 [Rx] Past Medical History Cardiovascular History: Reports: Hypertension Respiratory History: Reports: Sleep Apnea Other Respiratory History: has cpap does not use Neurological History: Reports: Seizure Other Neuro History: seizures daily/weekly Psychiatric History: Reports: ADHD, Depression Endocrine/Metabolic History: Reports: Obesity/BMI 30+ - Infectious Disease History Infectious Disease History: Reports: Chicken Pox - Past Surgical History Head Surgeries/Procedures: Reports: None Cardiovascular Surgical History: Reports: None Respiratory Surgical History: Reports: None Endocrine Surgical History: Reports: None Neurological Surgical History: Reports: None Dermatological Surgical History: Reports: None Social & Family History - Family History Family Medical History: Unobtainable - Tobacco Use Smoking Status *Q: Heavy Tobacco Smoker Years of Tobacco use: 15 Packs/Tins Daily: 1 - Caffeine Use Caffeine Use: Reports: Soda - Recreational Drug Use Recreational Drug Use: No Review of Systems - Review of Systems Review Of Systems: See Below Constitutional: Reports: No Symptoms Respiratory: Reports: No Symptoms Cardiovascular: Reports: No Symptoms Musculoskeletal: Reports: No Symptoms Skin: Reports: Erythema (over the course of the involved vein of the L leg. ) Neurological: Reports: No Symptoms ED EXAM, GENERAL - Physical Exam Exam: See Below Exam Limited By: No Limitations General Appearance: Alert, WD/WN, No Apparent Distress, Obese Respiratory/Chest: No Respiratory Distress, No Accessory Muscle Use Cardiovascular: Regular Rate, Rhythm, No Edema Extremities: Increased Warmth (over the course of the involved L leg vein. ), Redness (Over the involved vein from the calf to the proximal thigh. ), Other ( extensive varicosities present both LE's. ). No: Pedal Edema, Joint Swelling Neurological: Alert, Oriented, CN II-XII Intact, Normal Cognition, No Motor/ Sensory Deficits Psychiatric: Normal Affect, Normal Mood Skin Exam: Warm, Dry, Intact, No Rash, Erythema (Over the involved vein only.), Increased Warmth (over involved vein) Course - Vital Signs Last Recorded V/S: Last Vital Signs Temp 36.1 C 11/09/19 09:36 Pulse 87 11/09/19 09:36 Resp 18 11/09/19 09:36 BP 158/94 H 11/09/19 09:36 Pulse Ox 99 11/09/19 09:36 - Radiology Interpretation Free Text/Narrative:: venous doppler L leg-extension of clot in superficial venous system to the proximal thigh. No DVT noted. Departure - Departure Time of Disposition: 11:05 Disposition: Home, Self-Care 01 Condition: Fair Clinical Impression: Thrombophlebitis leg - Discharge Information *PRESCRIPTION DRUG MONITORING PROGRAM REVIEWED*: No *COPY OF PRESCRIPTION DRUG MONITORING REPORT IN PATIENT ANDREA: No Prescriptions: Rivaroxaban [Xarelto] 15 mg PO Q12H #42 tab Referrals: PCP,None [Primary Care Provider] - Forms: ED Department Discharge Additional Instructions: Use Xarelto twice daily, every 12 hrs, for 3 weeks. Recheck in the clinic before 3 weeks from now to get a new Rx for Xarelto 20 mg daily that you will need to take for an additional 3 weeks. Elevate your left leg above your heart as much as possible. Apply warm, moist heat to the area several times a day. Use acetaminophen OR [place] as needed for pain relief. Recheck if worse. Sepsis Event Note - Evaluation Sepsis Screening Result: No Definite Risk - Focused Exam Vital Signs: Vital Signs Temp Pulse Resp BP Pulse Ox 11/09/19 09:36 36.1 C 87 18 158/94 H 99 11/09/19 09:35 36.1 C 87 18 158/94 H 99 Date Exam was Performed: 11/09/19 Time Exam was Performed: 11:02
--- NOTE | 2019-11-09 10:42 | US ---
VL Duplex Lwr Ext Veins Ltd Lt INDICATION: has phlebitis, R/O DVT FINDINGS: Ultrasound examination of the lower extremity using Doppler and compressive technique demonstrates that the common femoral, femoral, and popliteal veins are patent, and negative for thrombus. The deep calf veins were segmentally visualized and are negative where seen. There is some clot in the left the greater saphenous vein in the upper thigh. Upper portion of this clot is approximately 5 mm from the common femoral vein IMPRESSION: Superficial venous thrombosis in the thigh. This is also seen on a prior study from 10/30/2019. Thrombus has propagated from distal thigh to near the junction of the common femoral vein. Negative for deep venous thrombosis.
== END 2019-11-09 11:17 | disposition home or self-care (01) ==
LOC: JP.ED 09:10
DX: I80.02 Phlebitis and thrombophlebitis of superficial vessels of left lower extremity (principal); I10 Essential (primary) hypertension; F32.9 Major depressive disorder, single episode, unspecified; F90.9 Attention-deficit hyperactivity disorder, unspecified type; E66.9 Obesity, unspecified; Z68.41 Body mass index [BMI] 40.0-44.9, adult; F17.210 Nicotine dependence, cigarettes, uncomplicated; Z79.82 Long term (current) use of aspirin; Z79.899 Other long term (current) drug therapy; Z79.01 Long term (current) use of anticoagulants
CPT/HCPCS: 93971-26-LT; 93971-LT; 99283; 99283-25

== ENCOUNTER 2020-06-11 00:47 | Emergency (ER) | payer MEDICARE, MEDICAID ==
[2020-06-11] MEDS ORDERED: levETIRAcetam 500 MG in Sodium Chloride 0.9% 100 ML IV ONE (01:09)
--- NOTE | 2020-06-11 02:04 | EDM.PDOC ---
ED HPI GENERAL MEDICAL PROBLEM - General Chief Complaint: Neuro Symptoms/Deficits Stated Complaint: SEIZURE VIA [facility] Time Seen by Provider: 06/11/20 01:00 Source of Information: Reports: Patient, EMS History Limitations: Reports: Altered Mental Status - History of Present Illness INITIAL COMMENTS - FREE TEXT/NARRATIVE: 35-year-old male with a long history of epilepsy and recurring generalized seizures had a seizure this evening witnessed by his friends he lives with so they called the ambulance. He did fall off a chair during a seizure and hit the left side of his head. He has a contusion and a small abrasion on the left scalp, he was not incontinent and does not appear to have a serious injury to the tongue or mucous membranes. He arrived postictal and confused. Onset: Sudden Duration: Hour(s): (Within the last 30 minutes) Associated Symptoms: Reports: Confusion, Headaches - Related Data Allergies Allergy/AdvReac Type Severity Reaction Status Date / Time No Known Allergies Allergy Verified 08/30/19 01:20 Home Meds: Home Meds ARIPiprazole [Abilify] 2 mg PO DAILY 07/05/19 [History] Aspirin [Ecotrin EC] 81 mg PO DAILY 07/05/19 [History] Divalproex Sodium [Depakote] 500 mg PO BID 07/05/19 [History] atoMOXetine [Strattera] 25 mg PO DAILY 07/05/19 [History] levETIRAcetam [Keppra] 500 mg PO BID 07/05/19 [History] Albuterol [Ventolin HFA] 1 gm IH QID PRN 08/05/19 [History] Acetaminophen/HYDROcodone [[place] 325-5 MG] 1 tab PO Q4H PRN #24 tab 11/09/19 [Rx] Felbamate [Felbatol] 600 mg PO TID 11/09/19 [History] Rivaroxaban [Xarelto] 15 mg PO Q12H #42 tab 11/09/19 [Rx] Past Medical History Cardiovascular History: Reports: Hypertension Respiratory History: Reports: Sleep Apnea Other Respiratory History: has cpap does not use Neurological History: Reports: Seizure Other Neuro History: seizures daily/weekly Psychiatric History: Reports: ADHD, Depression Endocrine/Metabolic History: Reports: Obesity/BMI 30+ - Infectious Disease History Infectious Disease History: Reports: Chicken Pox - Past Surgical History Head Surgeries/Procedures: Reports: None Cardiovascular Surgical History: Reports: None Respiratory Surgical History: Reports: None Endocrine Surgical History: Reports: None Neurological Surgical History: Reports: None Dermatological Surgical History: Reports: None Social & Family History - Family History Family Medical History: Unobtainable - Tobacco Use Tobacco Use Status *Q: Unknown Ever Used Tobacco - Caffeine Use Caffeine Use: Reports: Soda ED ROS GENERAL - Review of Systems Review Of Systems: See Below Constitutional: Denies: Fever, Chills Respiratory: Denies: Shortness of Breath Cardiovascular: Denies: Chest Pain GI/Abdominal: Denies: Abdominal Pain, Nausea, Vomiting Skin: Reports: Other (Small hematoma and abrasion on the left scalp) Neurological: Reports: Confusion, Headache - Physical Exam Exam: See Below Exam Limited By: No Limitations General Appearance: Alert, No Apparent Distress Eye Exam: Bilateral Eye: Normal Inspection, PERRL Head Exam: Other (Superficial abrasion and small hematoma on the left parietal scalp) Neck: Supple, Non-Tender Respiratory/Chest: Lungs Clear Cardiovascular: Regular Rate, Rhythm GI/Abdominal: Soft, Non-Tender Neuro Exam (Abbreviated): Alert, Slow to Respond, Other (Initially disoriented and confused). No: Oriented Psychiatric: Flat Affect Skin Exam: Warm, Dry Course - Vital Signs Last Recorded V/S: Last Vital Signs Temp 98.0 F 06/11/20 00:49 Pulse 100 06/11/20 00:49 Resp 31 H 06/11/20 00:49 BP 171/97 H 06/11/20 00:49 Pulse Ox 96 06/11/20 00:49 - Orders/Labs/Meds Orders: Active Orders 24 hr Category Date Time Status LEVETIRACETAM (KEPPRA), S Stat Lab 06/11/20 01:09 Ordered Labs: Laboratory Tests 06/11/20 06/11/20 Range/Units 01:05 01:05 WBC 6.5 (4.5-11.0) K/uL RBC 5.18 (4.30-5.90) M/uL Hgb 15.2 H (12.0-15.0) g/dL Hct 45.2 (40.0-54.0) % MCV 87 (80-98) fL MCH 29 (27-31) pg MCHC 34 (32-36) % Plt Count 224 (150-400) K/uL Neut % (Auto) 53 (36-66) % Lymph % (Auto) 37 (24-44) % [place] % (Auto) 9 H (2-6) % Eos % (Auto) 1 L (2-4) % Baso % (Auto) 0 (0-1) % Sodium 141 (140-148) mmol/L Potassium 3.8 (3.6-5.2) mmol/L Chloride 103 (100-108) mmol/L Carbon Dioxide 26 (21-32) mmol/L Anion Gap 12.1 (5.0-14.0) mmol/L BUN 11 (7-18) mg/dL Creatinine 1.1 (0.8-1.3) mg/dL Est Cr Clr Drug Dosing 92.84 mL/min Estimated GFR (MDRD) > 60 (>60) Glucose 114 H (74-106) mg/dL Calcium 8.2 L (8.5-10.1) mg/dL Meds: Medications Discontinued Medications Generic Name Dose Route Start Last Admin Trade Name Joni PRN Reason Stop Dose Admin Levetiracetam 500 mg/ Sodium 105 mls @ 400 mls/hr 06/11/20 01:09 06/11/20 0 1:16 Chloride IV 06/11/20 01:23 400 mls/hr ONETIME ONE Administration - Re-Assessments/Exams Free Text/Narrative Re-Assessment/Exam: 06/11/20 06:49 After 20 minutes the patient was back to baseline. He was complaining of a headache, says he is not taking his seizure medication regularly but does take his Xarelto. CT the head was negative. He was strongly encouraged to take his seizure medication, was given 500 mg of IV Keppra and a BMP and CBC were obtained. These were relatively normal. 06/11/20 06:50 Also a Keppra level was drawn which is a send out, this will be communicated with the patient when available but it will likely be low since he is not taking his medications as prescribed. Departure - Departure Time of Disposition: 02:30 Disposition: Home, Self-Care 01 Clinical Impression: Generalized seizure Contusion of scalp Qualifiers: Encounter type: 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 Qualified Code(s): S00.03XA - Contusion of scalp, 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 - Discharge Information Instructions: Epilepsy, [id number] Referrals: PCP,None [Primary Care Provider] - Forms: ED Department Discharge Care Plan Goals: It is very important that you take your seizure medication as prescribed. Sepsis Event Note (ED) - Evaluation Sepsis Screening Result: No Definite Risk - Focused Exam Vital Signs: Vital Signs Temp Pulse Resp BP Pulse Ox 06/11/20 00:49 98.0 F 100 31 H 171/97 H 96 - My Orders Last 24 Hours: My Active Orders 06/11/20 01:09 LEVETIRACETAM (KEPPRA), S Stat - Assessment/Plan Last 24 Hours: My Active Orders 06/11/20 01:09 LEVETIRACETAM (KEPPRA), S Stat
--- NOTE | 2020-06-11 02:30 | CRLCT ---
INDICATION: Head injury. Anticoagulated TECHNIQUE: CT head without contrast. COMPARISON: 08/24/2019 FINDINGS: The ventricles and sulci are within normal limits. There is no mass effect or midline shift. There is no loss of chatman-white differentiation. There is no evidence of an acute intracranial hemorrhage. No acute calvarial fracture is seen. The visualized paranasal sinuses and mastoid air cells are clear. The visualized orbits are within normal limits. The adenoids are enlarged. IMPRESSION: No evidence of an acute intracranial hemorrhage, mass effect or loss of chatman-white differentiation. Dictated by Martinez Fofana MD @ 06/11/2020 2:27:25 AM Please note that all CT scans at this facility use dose modulation, iterative reconstruction, and/or weight-based dosing when appropriate to reduce radiation dose to as low as reasonably achievable. Dictated by: Martinez Fofana MD @ 06/11/2020 02:27:28 (Electronically Signed)
== END 2020-06-11 02:30 | disposition home or self-care (01) ==
LOC: JP.ED 00:47
DX: G40.409 Other generalized epilepsy and epileptic syndromes, not intractable, without status epilepticus (principal); S00.03XA Contusion of scalp, 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; I10 Essential (primary) hypertension; F32.9 Major depressive disorder, single episode, unspecified; Z79.01 Long term (current) use of anticoagulants; Z79.899 Other long term (current) drug therapy; Z79.82 Long term (current) use of aspirin; E66.9 Obesity, unspecified; Z68.36 Body mass index [BMI] 36.0-36.9, adult; W07.XXXA Fall from chair, 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
CPT/HCPCS: 70450; 80048; 80177; 85025; 96374; 99285; J1953; 36415; 99284

== ENCOUNTER 2020-07-23 19:30 | Emergency (ER) | payer MEDICARE, MEDICAID ==
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
--- NOTE | 2020-07-25 13:18 | CR ---
Ankle Min 3V Rt CLINICAL HISTORY: Pain and swelling, fall FINDINGS: The soft tissues are mildly swollen. No acute fracture or dislocation is noted. Ankle mortise is intact. Articular surfaces are smooth. There is a tiny calcaneal spur Impression: Soft tissue swelling No fracture
== END 2020-07-23 22:30 | disposition home or self-care (01) ==
LOC: JP.ED 19:30
DX: S93.401A Sprain of unspecified ligament of right ankle, 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 (principal); I10 Essential (primary) hypertension; F32.9 Major depressive disorder, single episode, unspecified; E66.9 Obesity, unspecified; F17.210 Nicotine dependence, cigarettes, uncomplicated; R56.9 Unspecified convulsions; Z68.41 Body mass index [BMI] 40.0-44.9, adult; Z79.82 Long term (current) use of aspirin; Z79.899 Other long term (current) drug therapy; W17.89XA Other fall from one level to another, 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
CPT/HCPCS: 73610-26-RT; 73610-RT; 99282; 99283

== ENCOUNTER 2020-10-22 18:45 | Emergency (ER) | payer MEDICARE, MEDICAID ==
[2020-10-22] MEDS ORDERED: Aluminum Hydroxide/Magnesium Hydroxide/Simethicone Susp 30 ML Cup PO ONE (19:24)
--- NOTE | 2020-10-22 19:54 | EDM.PDOC ---
ED HPI GENERAL MEDICAL PROBLEM - General Chief Complaint: Gastrointestinal Problem Stated Complaint: ABDOMINAL/CHEST/BACK PAIN Time Seen by Provider: 10/22/20 19:25 Source of Information: Reports: Patient, Family History Limitations: Reports: No Limitations - History of Present Illness INITIAL COMMENTS - FREE TEXT/NARRATIVE: 35-year-old male with upper abdominal pain, pressure, and intermittent diarrhea since this morning. It started after drinking coffee this morning, he went to work but the pain in his upper abdomen was bothering him enough to leave. He slept most of the day and got up and tried to eat supper but the pain increased so he came in. It is fairly localized to his upper abdomen, some radiation through to his back, mild nausea but no vomiting. No fevers or chills, he has had diarrhea several times today, no blood in stool. It hurts to take a deep breath on the right side anteriorly. No shortness of breath. No cough. Onset: Sudden (Started fairly suddenly after coffee this morning) Duration: Hour(s): (About 12 hours of symptoms) Location: Reports: Abdomen (Upper abdomen, somewhat more on the right side) Worsens with: Reports: Eating (Eating anything causes increased discomfort) Associated Symptoms: Reports: Chest Pain (Pleuritic-like chest pain on the right side with deep breath), Malaise. Denies: Cough, Diaphoresis, Fever/Chills, Loss of Appetite, Shortness of Breath - Related Data Allergies Allergy/AdvReac Type Severity Reaction Status Date / Time No Known Allergies Allergy Verified 10/22/20 18:58 Home Meds: Home Meds ARIPiprazole [Abilify] 2 mg PO DAILY 07/05/19 [History] Aspirin [Ecotrin EC] 81 mg PO DAILY 07/05/19 [History] Divalproex Sodium [Depakote] 500 mg PO BID 07/05/19 [History] atoMOXetine [Strattera] 25 mg PO DAILY 07/05/19 [History] levETIRAcetam [Keppra] 500 mg PO BID 07/05/19 [History] Albuterol [Ventolin HFA] 1 gm IH QID PRN 08/05/19 [History] Felbamate [Felbatol] 600 mg PO TID 11/09/19 [History] Past Medical History Cardiovascular History: Reports: Hypertension Respiratory History: Reports: Sleep Apnea Other Respiratory History: has cpap does not use Neurological History: Reports: Seizure Other Neuro History: seizures daily/weekly Psychiatric History: Reports: ADHD, Depression Endocrine/Metabolic History: Reports: Obesity/BMI 30+ - Infectious Disease History Infectious Disease History: Reports: Chicken Pox - Past Surgical History Head Surgeries/Procedures: Reports: None Cardiovascular Surgical History: Reports: None Respiratory Surgical History: Reports: None Endocrine Surgical History: Reports: None Neurological Surgical History: Reports: None Dermatological Surgical History: Reports: None Social & Family History - Family History Family Medical History: Unobtainable - Tobacco Use Tobacco Use Status *Q: Current Every Day Tobacco User Years of Tobacco use: 15 Packs/Tins Daily: 1 - Caffeine Use Caffeine Use: Reports: Coffee, Energy Drinks, Soda ED ROS GENERAL - Review of Systems Review Of Systems: See Below Constitutional: Reports: Malaise. Denies: Fever, Chills HEENT: Denies: Throat Pain, Vision Change Respiratory: Reports: Pleuritic Chest Pain (Right side). Denies: Shortness of Breath, Cough Cardiovascular: Reports: Chest Pain. Denies: Palpitations Endocrine: Denies: Fatigue GI/Abdominal: Reports: Abdominal Pain, Distension (Feels bloated). Denies: Black Stool, Decreased Appetite, Difficulty Swallowing, Hematemesis, Hematochezia, Stool Incontinence : Reports: No Symptoms Musculoskeletal: Reports: No Symptoms Skin: Reports: No Symptoms Neurological: Denies: Headache Psychiatric: Reports: No Symptoms ED EXAM, GI/ABD - Physical Exam Exam: See Below Exam Limited By: No Limitations General Appearance: Alert, No Apparent Distress (Looks uncomfortable but not distressed) Eyes: Bilateral: Normal Appearance (No jaundice, good hydration) Head: Atraumatic Respiratory/Chest: No Respiratory Distress, Lungs Clear Cardiovascular: Regular Rate, Rhythm GI/Abdominal Exam: Soft, Tender (Abdomen is soft to palpation but he does react with significant tenderness across the upper abdomen and central abdomen, feels distended) Neurological: Alert, Oriented, No Motor/Sensory Deficits Psychiatric: Normal Affect, Normal Mood Skin Exam: Warm, Dry Course - Vital Signs Last Recorded V/S: Last Vital Signs Temp 97.5 F 10/22/20 19:09 Pulse 95 10/22/20 20:10 Resp 24 H 10/22/20 19:09 BP 138/81 10/22/20 20:10 Pulse Ox 97 10/22/20 20:10 - Orders/Labs/Meds Labs: Laboratory Tests 10/22/20 10/22/20 Range/Units 19:37 19:37 WBC 7.3 (4.5-11.0) K/uL RBC 4.87 (4.30-5.90) M/uL Hgb 14.6 (12.0-15.0) g/dL Hct 44.1 (40.0-54.0) % MCV 91 (80-98) fL MCH 30 (27-31) pg MCHC 33 (32-36) % Plt Count 183 (150-400) K/uL Neut % (Auto) 48 (36-66) % Lymph % (Auto) 35 (24-44) % Mccone % (Auto) 15 H (2-6) % Eos % (Auto) 2 (2-4) % Baso % (Auto) 0 (0-1) % Sodium 147 (140-148) mmol/L Potassium 4.1 (3.6-5.2) mmol/L Chloride 104 (100-108) mmol/L Carbon Dioxide 32 (21-32) mmol/L Anion Gap 10.7 (5.0-14.0) mmol/L BUN 17 D (7-18) mg/dL Creatinine 1.0 (0.8-1.3) mg/dL Est Cr Clr Drug Dosing 102.12 mL/min Estimated GFR (MDRD) > 60 (>60) Glucose 87 (74-106) mg/dL Calcium 9.0 (8.5-10.1) mg/dL Total Bilirubin 0.4 (0.2-1.0) mg/dL AST 27 (15-37) U/L ALT 52 (12-78) U/L Alkaline Phosphatase 63 (46-116) U/L Total Protein 7.0 (6.4-8.2) g/dL Albumin 3.7 (3.4-5.0) g/dL Globulin 3.3 (2.3-3.5) g/dL Albumin/Globulin Ratio 1.1 L (1.2-2.2) Lipase 127 (73-393) U/L Meds: Medications Discontinued Medications Generic Name Dose Route Start Last Admin Trade Name Freq PRN Reason Stop Dose Admin Al Hydroxide/Mg Hydroxide 30 ml 10/22/20 19:24 10/22/20 19:27 Aluminum Hydroxide/Magnesium Hydroxide/Simethicone Susp 30 Ml Cup PO 10/22/20 19:25 30 ml ONETIME ONE Administration - Re-Assessments/Exams Free Text/Narrative Re-Assessment/Exam: 10/22/20 19:53 [id number] ultrasound of the abdomen showed no free fluid, good liver edge but I could not see a distinct gallbladder. CBC, CMP, lipase was obtained. 10/22/20 19:54 Patient was given 30 cc of oral Maalox 10/22/20 20:51 All the patient's labs were normal including a lipase and all LFTs. He did have some improvement after the Maalox. No further imaging is needed at this time, I recommended an antacid for the next few days and a slow increase in his diet. Return if worsening. Departure - Departure Time of Disposition: 21:08 Disposition: Home, Self-Care 01 Clinical Impression: Gastroenteritis - Discharge Information Instructions: Abdominal Pain, Adult, [id number] Referrals: [place] DO [Primary Care Provider] - Forms: ED Department Discharge Care Plan Goals: Have some liquid antacid close by to repeat every 3-4 hours if needed. Concentrate on fluids and advance diet slowly, return in 2 to 3 days if not improving satisfactorily. Return sooner if worsening such as increased pain or persistent vomiting. Sepsis Event Note (ED) - Evaluation Sepsis Screening Result: No Definite Risk - Focused Exam Vital Signs: Vital Signs Temp Pulse Resp BP Pulse Ox 10/22/20 20:10 95 138/81 97 10/22/20 19:24 94 138/75 96 10/22/20 19:09 97.5 F 96 24 H 136/83 100 10/22/20 18:55 97.5 F 96 24 H 136/83 100
== END 2020-10-22 21:09 | disposition home or self-care (01) ==
LOC: JP.ED 18:45
DX: K52.9 Noninfective gastroenteritis and colitis, unspecified (principal); I10 Essential (primary) hypertension; R56.9 Unspecified convulsions; E66.9 Obesity, unspecified; Z72.0 Tobacco use; Z68.41 Body mass index [BMI] 40.0-44.9, adult; Z79.82 Long term (current) use of aspirin; Z79.899 Other long term (current) drug therapy
CPT/HCPCS: 36415; 80053; 83690; 85025; 99284; A9270; 99283

== ENCOUNTER 2020-12-30 08:32 | Emergency (ER) | payer MEDICARE, MEDICAID ==
[2020-12-30] MEDS ORDERED: Bupivacaine 0.5% 10 ML SDV INJECT ONE (08:55)
--- NOTE | 2020-12-30 09:15 | EDM.PDOC ---
ED HPI GENERAL MEDICAL PROBLEM - General Chief Complaint: Laceration Stated Complaint: CUT PINKY Time Seen by Provider: 12/30/20 08:50 Source of Information: Reports: Patient History Limitations: Reports: No Limitations - History of Present Illness INITIAL COMMENTS - FREE TEXT/NARRATIVE: Patient presents to ER from work due to right fifth finger crush injury. Pt reports he was taking out the trash when the lid came down on finger. Patient reports pain and bleeding after event. Onset: Today Duration: Hour(s): Location: Reports: Other Associated Symptoms: Reports: No Other Symptoms - Related Data Allergies Allergy/AdvReac Type Severity Reaction Status Date / Time No Known Allergies Allergy Verified 12/30/20 08:46 Home Meds: Home Meds ARIPiprazole [Abilify] 2 mg PO DAILY 07/05/19 [History] Aspirin [Ecotrin EC] 81 mg PO DAILY 07/05/19 [History] Divalproex Sodium [Depakote] 500 mg PO BID 07/05/19 [History] atoMOXetine [Strattera] 25 mg PO DAILY 07/05/19 [History] levETIRAcetam [Keppra] 500 mg PO BID 07/05/19 [History] Albuterol [Ventolin HFA] 1 gm IH QID PRN 08/05/19 [History] Felbamate [Felbatol] 600 mg PO TID 11/09/19 [History] Past Medical History Cardiovascular History: Reports: Hypertension Respiratory History: Reports: Sleep Apnea Other Respiratory History: has cpap does not use Neurological History: Reports: Seizure Other Neuro History: seizures daily/weekly Psychiatric History: Reports: ADHD, Depression Endocrine/Metabolic History: Reports: Obesity/BMI 30+ - Infectious Disease History Infectious Disease History: Reports: Chicken Pox - Past Surgical History Head Surgeries/Procedures: Reports: None Cardiovascular Surgical History: Reports: None Respiratory Surgical History: Reports: None Endocrine Surgical History: Reports: None Neurological Surgical History: Reports: None Dermatological Surgical History: Reports: None Social & Family History - Family History Family Medical History: Unobtainable - Tobacco Use Tobacco Use Status *Q: Current Every Day Tobacco User Years of Tobacco use: 20 Packs/Tins Daily: 1 Used Tobacco, but Quit: No Second Hand Smoke Exposure: Yes - Caffeine Use Caffeine Use: Reports: Coffee, Soda, Tea - Recreational Drug Use Recreational Drug Use: Yes Drug Use in Last 12 Months: Yes Recreational Drug Type: Reports: Marijuana/Hashish Recreational Drug Use Frequency: Daily ED ROS GENERAL - Review of Systems Review Of Systems: See Below Constitutional: Reports: No Symptoms HEENT: Reports: No Symptoms Respiratory: Reports: No Symptoms Cardiovascular: Reports: No Symptoms Endocrine: Reports: No Symptoms GI/Abdominal: Reports: No Symptoms : Reports: No Symptoms Musculoskeletal: Reports: No Symptoms Skin: Reports: Other (crush injury to right fifth finger) Neurological: Reports: No Symptoms Psychiatric: Reports: No Symptoms Hematologic/Lymphatic: Reports: No Symptoms Immunologic: Reports: No Symptoms ED EXAM, SKIN/RASH Exam: See Below Text/Narrative:: Crush wound to right fifth finger tip,fleshy avulsion injury noted with small portion of fingertip amputated. bleeding at site, cuticle and nail matrix intact. Exam Limited By: No Limitations General Appearance: Alert Respiratory/Chest: No Respiratory Distress Cardiovascular: Normal Peripheral Pulses Extremities: Other (right fifth finger crush injury with finger tip amputation) Neurological: Alert, Oriented Psychiatric: Normal Affect Skin: Warm, Dry, Other Location, Skin: Other Associated features: Tenderness Course - Vital Signs Text/Narrative:: Wound soaked in sterile water,finger cleansed with Betadine, digital block performed, Right fifth finger xray radiology read pending, small phalanx fracture noted, ortho consult placed, Pt started on oral cephalexin. Wound dressed with antibiotic ointment, gauze dressing and alumafoam splint. TDAP in 2016. Last Recorded V/S: Last Vital Signs Temp 36.7 C 12/30/20 08:48 Pulse 89 12/30/20 08:48 Resp 17 12/30/20 08:48 BP 164/96 H 12/30/20 08:48 Pulse Ox 95 12/30/20 08:48 - Orders/Labs/Meds Orders: Active Orders 24 hr Category Date Time Status Consult to Orthopedic Clinic [CONS] Routine Cons 12/30/20 09:35 Active Meds: Medications Discontinued Medications Generic Name Dose Route Start Last Admin Trade Name Joni PRN Reason Stop Dose Admin Bacitracin 1 dose 12/30/20 09:31 12/30/20 09:55 Bacitracin Oint 1 Gm U/D Packet TOP 12/30/20 09:32 1 dose ONETIME ONE Administration Bupivacaine HCl 10 ml 12/30/20 08:55 12/30/20 08:59 Bupivacaine 0.5% 10 Ml Sdv INJECT 12/30/20 08:56 10 ml ONETIME ONE Administration Departure - Departure Time of Disposition: 10:20 Disposition: Home, Self-Care 01 Condition: Good Clinical Impression: Phalanx, distal fracture of finger, Laceration, Fracture of bone - Discharge Information Instructions: Laceration Care, Adult Referrals: [place] DO [Primary Care Provider] - Forms: ED Department Discharge Additional Instructions: Recheck with Dr Echols next week as scheduled. Keep wound clean and dry, antibiotic ointment as needed. Return for reevaluation if signs of infection such as fever, increased pain, drainage, reddness, or increased swelling. Take medication as prescribed. Sepsis Event Note (ED) - Evaluation Sepsis Screening Result: No Definite Risk - Focused Exam Vital Signs: Vital Signs Temp Pulse Resp BP Pulse Ox 12/30/20 08:48 36.7 C 89 17 164/96 H 95 12/30/20 08:47 36.7 C 89 17 164/96 H 95 - My Orders Last 24 Hours: My Active Orders 12/30/20 09:35 Consult to Orthopedic Clinic [CONS] Routine - Assessment/Plan Last 24 Hours: My Active Orders 12/30/20 09:35 Consult to Orthopedic Clinic [CONS] Routine
[2020-12-30] MEDS ORDERED: Bacitracin Oint 1 GM U/D Packet TOP ONE (09:31)
--- NOTE | 2020-12-30 10:04 | CR ---
Fingers Fifth Digit Rt F9 CLINICAL HISTORY: Injury FINDINGS: There is been soft tissue amputation of the tip of the fifth digit. There is a minimal tuft fracture. IMPRESSION: Soft tissue amputation tip of the fifth digit with minimal tuft fracture
== END 2020-12-30 10:20 | disposition home or self-care (01) ==
LOC: JP.ED 08:32
DX: S62.636A Displaced fracture of distal phalanx of right little finger, 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 for closed fracture (principal); I10 Essential (primary) hypertension; E66.9 Obesity, unspecified; Z68.30 Body mass index [BMI] 30.0-30.9, adult; Z79.82 Long term (current) use of aspirin; Z72.0 Tobacco use; W23.0XXA Caught, crushed, jammed, or pinched between moving objects, 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
CPT/HCPCS: 64450; 73140; 99283; J3490

== ENCOUNTER 2021-01-17 19:28 | Emergency (ER) | payer MEDICARE, MEDICAID ==
--- NOTE | 2021-01-17 20:58 | EDM.PDOC ---
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 - Related Data Allergies Allergy/AdvReac Type Severity Reaction Status Date / Time No Known Allergies Allergy Verified 01/17/21 20:27 Home Meds: Home Meds ARIPiprazole [Abilify] 10 mg PO DAILY 07/05/19 [History] Divalproex Sodium [Depakote] 1,000 mg PO BID 07/05/19 [History] atoMOXetine [Strattera] 60 mg PO DAILY 07/05/19 [History] levETIRAcetam [Keppra] 750 mg PO BID 07/05/19 [History] Felbamate [Felbatol] 1,800 mg PO BID 11/09/19 [History] amLODIPine Besylate [Amlodipine Besylate] 10 mg PO DAILY 01/02/21 [History] Rivaroxaban [Xarelto] 15 mg PO BID #41 tab 01/17/21 [Rx] Past Medical History Cardiovascular History: Reports: Blood Clots/VTE/DVT, Hypertension Respiratory History: Reports: Sleep Apnea Other Respiratory History: has cpap does not use Musculoskeletal History: Reports: Fracture Other Musculoskeletal History: right hand 5th digit 12/30/20 Neurological History: Reports: Seizure Other Neuro History: seizures daily/weekly Psychiatric History: Reports: ADHD, Depression Endocrine/Metabolic History: Reports: Obesity/BMI 30+ - Infectious Disease History Infectious Disease History: Reports: Chicken Pox - Past Surgical History Head Surgeries/Procedures: Reports: None HEENT Surgical History: Reports: Other (See Below) Other HEENT Surgeries/Procedures: biopsy done on inside of lower lip Cardiovascular Surgical History: Reports: None Respiratory Surgical History: Reports: None Endocrine Surgical History: Reports: None Neurological Surgical History: Reports: None Musculoskeletal Surgical History: Reports: None Dermatological Surgical History: Reports: None Social & Family History - Family History Family Medical History: Unobtainable - Tobacco Use Tobacco Use Status *Q: Current Every Day Tobacco User Years of Tobacco use: 15 Packs/Tins Daily: 1 - Caffeine Use Caffeine Use: Reports: Coffee, Soda, Tea - Recreational Drug Use Recreational Drug Use: Yes Drug Use in Last 12 Months: Yes Recreational Drug Type: Reports: Marijuana/Hashish Recreational Drug Use Frequency: Daily ED ROS GENERAL - Review of Systems Review Of Systems: See Below Constitutional: Reports: No Symptoms Respiratory: Reports: No Symptoms Cardiovascular: Reports: No Symptoms GI/Abdominal: Reports: No Symptoms Musculoskeletal: Reports: Leg Pain ED EXAM, GENERAL - Physical Exam Exam: See Below Free Text/Narrative:: Examination of the left lower extremity I do appreciate a firm line that is palpable it starts at the top of the lower extremity medial aspect and progresses past the knee into the upper extremity consistent with a superficial thrombophlebitis Exam Limited By: No Limitations General Appearance: Alert, WD/WN, No Apparent Distress Course - Vital Signs Last Recorded V/S: Last Vital Signs Temp 97.7 F 01/17/21 20:31 Pulse 97 01/17/21 20:31 Resp 16 01/17/21 20:31 BP 150/85 H 01/17/21 20:31 Pulse Ox 94 L 01/17/21 20:31 - Orders/Labs/Meds Orders: Active Orders 24 hr Category Date Time Status VL Duplex Lwr Ext Veins Ltd Lt [US] Stat Exams 01/17/21 20:54 Taken Meds: Medications Discontinued Medications Generic Name Dose Route Start Last Admin Trade Name Freq PRN Reason Stop Dose Admin Rivaroxaban 15 mg 01/17/21 22:57 Rivaroxaban 15 Mg Tab PO 01/17/21 22:58 NOW STA Departure - Departure Time of Disposition: 22:59 Disposition: Home, Self-Care 01 Condition: Fair Clinical Impression: DVT (deep venous thrombosis) Qualifiers: DVT location: lower extremity Affected thrombotic vein of extremity: unspecified lower extremity distal vein Chronicity: acute Laterality: left Qualified Code(s): I82.4Z2 - Acute embolism and thrombosis of unspecified deep veins of left distal lower extremity Prescriptions: Rivaroxaban [Xarelto] 15 mg PO BID #41 tab Instructions: Deep Vein Thrombosis Referrals: [place] DO [Primary Care Provider] - Forms: ED Department Discharge Additional Instructions: Start the medication of Xarelto this is 15 mg twice a day after 21 days he will reduce the dose to 20 mg once a day please follow-up with your primary care in the next 7 to 10 days for reevaluation, your medications have been faxed to [facility] pharmacy for the initial 21 days Sepsis Event Note (ED) - Evaluation Sepsis Screening Result: No Definite Risk - Focused Exam Vital Signs: Vital Signs Temp Pulse Resp BP Pulse Ox 01/17/21 20:31 97.7 F 97 16 150/85 H 94 L 01/17/21 19:46 97.7 F 97 16 150/85 H 94 L - My Orders Last 24 Hours: My Active Orders 01/17/21 20:54 VL Duplex Lwr Ext Veins Ltd Lt [US] Stat - Assessment/Plan Last 24 Hours: My Active Orders 01/17/21 20:54 VL Duplex Lwr Ext Veins Ltd Lt [US] Stat Plan: Assessment Acuity = acute Site and laterality = superficial thrombophlebitis 5 mm from the deep vein system consistent with a DVT Etiology = unknown Manifestations = none Location of injury = Home Lab values = ultrasound confirms the DVT above Plan Because of his history elected to treat empirically with Xarelto 15 mg p.o. twice daily was given a dose now medication faxed to [facility] pharmacy after 21 days he will drop to 20 mg once a day and follow-up with his primary care in the next 7 to 10 days for reevaluation This note was dictated using [employer] voice recognition software please call with any questions on syntax or grammar.
[2021-01-17] MEDS ORDERED: Rivaroxaban 15 MG Tab PO STA (22:57)
--- NOTE | 2021-01-18 09:05 | US ---
VL Duplex Lwr Ext Veins Ltd Lt INDICATION: pain hx of dvt FINDINGS: Ultrasound examination of the lower extremity using Doppler and compressive technique demonstrates thrombus in the upper greater saphenous vein extending to the junction with the common femoral vein superficial femoral vein and popliteal vein and calf veins are clear IMPRESSION: There is clot in the greater saphenous vein extending to the junction with the common femoral vein. Negative for deep venous thrombosis.
== END 2021-01-17 23:45 | disposition home or self-care (01) ==
LOC: JP.ED 19:28
DX: I82.412 Acute embolism and thrombosis of left femoral vein (principal); I10 Essential (primary) hypertension; E66.9 Obesity, unspecified; Z72.0 Tobacco use; Z68.41 Body mass index [BMI] 40.0-44.9, adult; Z79.01 Long term (current) use of anticoagulants
CPT/HCPCS: 93971; 99283; A9270

== ENCOUNTER 2021-04-24 18:20 | Emergency (ER) | payer MEDICARE, MEDICAID ==
[2021-04-24] MEDS ORDERED: levETIRAcetam 500 MG/5 ML Solution ML 473 ml Bottle PO ONE (19:01)
[2021-04-24] MEDS ORDERED: levETIRAcetam 250 MG Tab PO ONE (19:31)
--- NOTE | 2021-04-24 19:36 | EDM.PDOC ---
ED HPI GENERAL MEDICAL PROBLEM - General Chief Complaint: General Stated Complaint: SORE THROAT, CHILLS, RUNNY NOSE Time Seen by Provider: 04/24/21 18:45 Source of Information: Reports: Patient History Limitations: Reports: No Limitations - History of Present Illness INITIAL COMMENTS - FREE TEXT/NARRATIVE: 35-year-old male who has had 3 days of viral-like symptoms of runny nose, sore throat, chills, body aches and cough. He is fully vaccinated for Covid. He thinks he has had some breakthrough seizures because he has not been taking his antiseizure medicine for the last 4 days. He arrives with normal vitals, he is afebrile. Generalized Pain Score (Numeric/FACES): 2 - Related Data Allergies Allergy/AdvReac Type Severity Reaction Status Date / Time No Known Allergies Allergy Verified 01/17/21 20:27 Home Meds: Home Meds ARIPiprazole [Abilify] 10 mg PO DAILY 07/05/19 [History] Divalproex Sodium [Depakote] 1,000 mg PO BID 07/05/19 [History] atoMOXetine [Strattera] 60 mg PO DAILY 07/05/19 [History] levETIRAcetam [Keppra] 750 mg PO BID 07/05/19 [History] Felbamate [Felbatol] 1,800 mg PO BID 11/09/19 [History] amLODIPine Besylate [Amlodipine Besylate] 10 mg PO DAILY 01/02/21 [History] Rivaroxaban [Xarelto] 15 mg PO BID #41 tab 01/17/21 [Rx] Past Medical History Cardiovascular History: Reports: Blood Clots/VTE/DVT, Hypertension Respiratory History: Reports: Sleep Apnea Other Respiratory History: has cpap does not use Musculoskeletal History: Reports: Fracture Other Musculoskeletal History: Evulsion right hand 5th digit 12/30/20 Neurological History: Reports: Seizure Other Neuro History: seizures daily/weekly Psychiatric History: Reports: ADHD, Depression Endocrine/Metabolic History: Reports: Obesity/BMI 30+ - Infectious Disease History Infectious Disease History: Reports: Chicken Pox - Past Surgical History Head Surgeries/Procedures: Reports: None HEENT Surgical History: Reports: Other (See Below) Other HEENT Surgeries/Procedures: biopsy done on inside of lower lip Cardiovascular Surgical History: Reports: None Respiratory Surgical History: Reports: None Endocrine Surgical History: Reports: None Neurological Surgical History: Reports: None Musculoskeletal Surgical History: Reports: None Dermatological Surgical History: Reports: None Social & Family History - Family History Family Medical History: Unobtainable - Tobacco Use Tobacco Use Status *Q: Current Every Day Tobacco User Years of Tobacco use: 17 Packs/Tins Daily: 1 - Caffeine Use Caffeine Use: Reports: Coffee, Soda, Tea - Recreational Drug Use Recreational Drug Use: Yes Drug Use in Last 12 Months: Yes Recreational Drug Type: Reports: Marijuana/Hashish Recreational Drug Use Frequency: Weekly ED ROS GENERAL - Review of Systems Review Of Systems: See Below Constitutional: Reports: Fever, Malaise. Denies: Chills HEENT: Reports: Sinus Problem (Nasal congestion, postnasal drip), Throat Pain Respiratory: Reports: Shortness of Breath, Cough : Reports: No Symptoms Skin: Reports: No Symptoms Neurological: Reports: Seizure. Denies: Headache Psychiatric: Reports: No Symptoms ED EXAM, GENERAL - Physical Exam Exam: See Below Exam Limited By: No Limitations General Appearance: Alert, No Apparent Distress Eye Exam: Bilateral Eye: Normal Inspection Ears: Normal TMs Head: Atraumatic Neck: Supple, Non-Tender Respiratory/Chest: Lungs Clear Cardiovascular: Regular Rate, Rhythm Neurological: Alert, Oriented Psychiatric: Normal Affect, Normal Mood Skin Exam: Warm, Dry Course - Vital Signs Last Recorded V/S: Last Vital Signs Temp 98.4 F 04/24/21 18:41 Pulse 98 04/24/21 18:41 Resp 16 04/24/21 18:41 BP 163/98 H 04/24/21 18:41 Pulse Ox 97 04/24/21 18:41 - Orders/Labs/Meds Labs: Laboratory Tests 04/24/21 Range/Units 19:00 SARS-CoV-2 RNA (ALEX) Negative (NEGATIVE) Meds: Medications Discontinued Medications Generic Name Dose Route Start Last Admin Trade Name Freq PRN Reason Stop Dose Admin Levetiracetam 500 mg 04/24/21 19:31 04/24/21 19:55 Levetiracetam 250 Mg Tab PO 04/24/21 19:32 500 mg ONETIME ONE Administration - Re-Assessments/Exams Free Text/Narrative Re-Assessment/Exam: 04/24/21 22:31 Covid was tested and is negative. Patient will be covered with a course of Zithromax for bronchitis, given 500 mg of oral Keppra, and encouraged to take his antiseizure medication as prescribed. He can be excused from work today and tomorrow. Departure - Departure Time of Disposition: 20:36 Disposition: Home, Self-Care 01 Clinical Impression: Bronchitis - Discharge Information Instructions: Acute Bronchitis, Adult, [id number] Referrals: PCP,None [Primary Care Provider] - Forms: ED Department Discharge Care Plan Goals: Take the antibiotic as prescribed, it is very important that you get back on your seizure medication as prescribed. Return if worsening such as difficulty breathing. Stay home today. Sepsis Event Note (ED) - Evaluation Sepsis Screening Result: No Definite Risk - Focused Exam Vital Signs: Vital Signs Temp Pulse Resp BP Pulse Ox 04/24/21 18:41 98.4 F 98 16 163/98 H 97
== END 2021-04-24 20:37 | disposition home or self-care (01) ==
LOC: JP.ED 18:20
DX: J40 Bronchitis, not specified as acute or chronic (principal); I10 Essential (primary) hypertension; E66.9 Obesity, unspecified; Z68.41 Body mass index [BMI] 40.0-44.9, adult; Z72.0 Tobacco use; Z79.01 Long term (current) use of anticoagulants; Z79.899 Other long term (current) drug therapy; Z20.822 Contact with and (suspected) exposure to COVID-19
CPT/HCPCS: 99283; A9270; U0002

== ENCOUNTER 2021-07-05 05:28 | Emergency (ER) | payer MEDICARE, MEDICAID ==
--- NOTE | 2021-07-05 06:13 | EDM.PDOC ---
ED HPI GENERAL MEDICAL PROBLEM - General Chief Complaint: Respiratory Problem Stated Complaint: SOB Time Seen by Provider: 07/05/21 06:07 Source of Information: Reports: Patient History Limitations: Reports: No Limitations - History of Present Illness INITIAL COMMENTS - FREE TEXT/NARRATIVE: Himanshu is a 36-year-old male who presents to the ED via private vehicle for evaluation of dyspnea over the last 3 months associated with a cough and productive sputum. The patient is an avid smoker consuming 1 to 2 packs/day and also smokes marijuana and methamphetamine on occasion. He states over the last 3 months he has become progressively dyspneic causing fatigue with less and less activity. He denies any fever or chills, loss of taste or smell, but has had cough producing thick white to dark yellow sputum. He does suffer from obesity. esophageal discomfort Pain Score (Numeric/FACES): 3 - Related Data Allergies Allergy/AdvReac Type Severity Reaction Status Date / Time No Known Allergies Allergy Verified 01/17/21 20:27 Home Meds: Home Meds ARIPiprazole [Abilify] 10 mg PO DAILY 07/05/19 [History] Divalproex Sodium [Depakote] 1,000 mg PO BID 07/05/19 [History] atoMOXetine [Strattera] 60 mg PO DAILY 07/05/19 [History] levETIRAcetam [Keppra] 750 mg PO BID 07/05/19 [History] Felbamate [Felbatol] 1,800 mg PO BID 11/09/19 [History] amLODIPine Besylate [Amlodipine Besylate] 10 mg PO DAILY 01/02/21 [History] Rivaroxaban [Xarelto] 15 mg PO BID #41 tab 01/17/21 [Rx] Past Medical History Cardiovascular History: Reports: Blood Clots/VTE/DVT, Hypertension Respiratory History: Reports: Sleep Apnea Other Respiratory History: has cpap does not use Musculoskeletal History: Reports: Fracture Other Musculoskeletal History: Evulsion right hand 5th digit 12/30/20 Neurological History: Reports: Seizure Other Neuro History: seizures daily/weekly Psychiatric History: Reports: ADHD, Depression Endocrine/Metabolic History: Reports: Obesity/BMI 30+ - Infectious Disease History Infectious Disease History: Reports: Chicken Pox - Past Surgical History Head Surgeries/Procedures: Reports: None HEENT Surgical History: Reports: Other (See Below) Other HEENT Surgeries/Procedures: biopsy done on inside of lower lip Cardiovascular Surgical History: Reports: None Respiratory Surgical History: Reports: None Endocrine Surgical History: Reports: None Neurological Surgical History: Reports: None Musculoskeletal Surgical History: Reports: None Dermatological Surgical History: Reports: None Social & Family History - Family History Family Medical History: Unobtainable - Caffeine Use Caffeine Use: Reports: Coffee, Soda, Tea ED ROS GENERAL - Review of Systems Review Of Systems: See Below Constitutional: Reports: No Symptoms HEENT: Reports: No Symptoms Respiratory: Reports: Shortness of Breath, Cough, Sputum Cardiovascular: Reports: No Symptoms Endocrine: Reports: Fatigue GI/Abdominal: Reports: No Symptoms : Reports: No Symptoms Musculoskeletal: Reports: No Symptoms Skin: Reports: No Symptoms Neurological: Reports: No Symptoms Psychiatric: Reports: No Symptoms Hematologic/Lymphatic: Reports: No Symptoms Immunologic: Reports: No Symptoms ED EXAM, GENERAL - Physical Exam Exam: See Below Exam Limited By: No Limitations General Appearance: Alert, Anxious, Mild Distress, Obese Eye Exam: Bilateral Eye: EOMI, PERRL Nose: Normal Inspection, Normal Mucosa Throat/Mouth: Normal Inspection, Normal Oropharynx, Normal Voice, No Airway Compromise Head: Atraumatic, Normocephalic Neck: Normal Inspection, Supple. No: Lymphadenopathy (R), Lymphadenopathy (L) Respiratory/Chest: No Respiratory Distress, No Accessory Muscle Use, Wheezing (Inspiratory and expiratory wheezes bilaterally especially in the bases). No: Crackles, Rales Cardiovascular: Normal Peripheral Pulses, Regular Rate, Rhythm, No Murmur Peripheral Pulses: 2+: Radial (L), Radial (R) GI/Abdominal: Normal Bowel Sounds, Soft, Non-Tender Extremities: Normal Inspection, Normal Range of Motion, No Pedal Edema Neurological: Alert, Oriented, Normal Cognition, No Motor/Sensory Deficits Psychiatric: Normal Affect, Anxious Skin Exam: Warm, Dry, Intact, Normal Color. No: Cyanosis Course - Vital Signs Last Recorded V/S: Last Vital Signs Temp 35.7 C L 07/05/21 06:23 Pulse 105 H 07/05/21 06:23 Resp 24 H 07/05/21 06:23 BP 148/96 H 07/05/21 06:23 Pulse Ox 96 07/05/21 06:23 - Orders/Labs/Meds Orders: Active Orders 24 hr Category Date Time Status Chest 2V [CR] Stat Exams 07/05/21 06:07 Taken C-REACTIVE PROTEIN [CHEM] Stat Lab 07/05/21 06:21 Received COMPREHENSIVE METABOLIC PN,CMP [CHEM] Stat Lab 07/05/21 06:21 Received D-DIMER QUANTITATIVE [COAG] Stat Lab 07/05/21 06:21 Received Labs: Laboratory Tests 07/05/21 Range/Units 06:21 WBC 7.6 (4.5-11.0) K/uL RBC 4.99 (4.30-5.90) M/uL Hgb 14.8 (12.0-15.0) g/dL Hct 44.3 (40.0-54.0) % MCV 89 (80-98) fL MCH 30 (27-31) pg MCHC 33 (32-36) % Plt Count 222 (150-400) K/uL Neut % (Auto) 57.4 (36-66) % Lymph % (Auto) 31.6 (24-44) % Winkler % (Auto) 10.0 H (2-6) % Eos % (Auto) 0.9 L (2-4) % Baso % (Auto) 0.1 (0-1) % - Radiology Interpretation Free Text/Narrative:: I reviewed the patient's 2 view chest x-ray showing some hilar adenopathy and hyperinflation of the lungs. There is no consolidation or infiltrates noted. - Re-Assessments/Exams Free Text/Narrative Re-Assessment/Exam: 07/05/21 06:51 I reviewed the patient's CBC showing a normal leukocyte count, hemoglobin, and platelet count. His chest x-ray suggests an acute on chronic bronchitis likely due to his cigarette smoking. I do think a trial of azithromycin would be warranted with the patient following up with a primary care provider to address his smoking. At this time I believe he suitable for discharge in satisfactory condition. Departure - Departure Time of Disposition: 06:51 Disposition: Home, Self-Care 01 Clinical Impression: Acute bronchitis with COPD - Discharge Information Instructions: Chronic Obstructive Pulmonary Disease, [id number], Acute Bronchitis, Adult, [id number] Forms: ED Department Discharge Care Plan Goals: It appears that you have acute on chronic bronchitis from your smoking and her developing COPD. We will put you on a Z-Mat which will help reduce the inflammation in the airways as well as an albuterol inhaler to dilate the airways so you are able to breathe better. I recommend following up with a primary care provider to aid you in quitting your smoking. Sepsis Event Note (ED) - Focused Exam Vital Signs: Vital Signs Temp Pulse Resp BP Pulse Ox 07/05/21 06:23 35.7 C L 105 H 24 H 148/96 H 96 07/05/21 06:09 35.7 C L 105 H 24 H 148/96 H 96 - Problem List & Annotations (1) Acute bronchitis with COPD SNOMED Code(s): 336204884518390 Code(s): J44.0 - CHR OBSTRUCTIVE PULMON DISEASE WITH (ACUTE) LOWER RESP INFCT; J20.9 - ACUTE BRONCHITIS, UNSPECIFIED Status: Acute Priority: Medium Current Visit: Yes - Problem List Review Problem List Initiated/Reviewed/Updated: Yes - My Orders Last 24 Hours: My Active Orders 07/05/21 06:07 Chest 2V [CR] Stat 07/05/21 06:21 C-REACTIVE PROTEIN [CHEM] Stat COMPREHENSIVE METABOLIC PN,CMP [CHEM] Stat D-DIMER QUANTITATIVE [COAG] Stat - Assessment/Plan Last 24 Hours: My Active Orders 07/05/21 06:07 Chest 2V [CR] Stat 07/05/21 06:21 C-REACTIVE PROTEIN [CHEM] Stat COMPREHENSIVE METABOLIC PN,CMP [CHEM] Stat D-DIMER QUANTITATIVE [COAG] Stat
--- NOTE | 2021-07-05 09:31 | CR ---
CHEST: 2 view CLINICAL HISTORY:Dyspnea COMPARISON:CT 08/24/2019 FINDINGS: The heart size, pulmonary vascularity and hilar structures are normal. No infiltrate effusion or pneumothorax is seen. There is an old right lower rib fracture with callus formation IMPRESSION: No acute cardiopulmonary process.
== END 2021-07-05 06:59 | disposition home or self-care (01) ==
LOC: JP.ED 05:28
DX: J20.9 Acute bronchitis, unspecified (principal); J44.9 Chronic obstructive pulmonary disease, unspecified; I10 Essential (primary) hypertension; E66.9 Obesity, unspecified; Z68.42 Body mass index [BMI] 45.0-49.9, adult; Z79.01 Long term (current) use of anticoagulants; Z79.899 Other long term (current) drug therapy
CPT/HCPCS: 36415; 71046; 71046-26; 80053; 85025; 85379; 86140; 99285-25

== ENCOUNTER 2021-11-11 23:12 | Emergency (ER) | payer MEDICARE, MEDICAID | END 2021-11-12 02:44 | disposition home or self-care (01) | LOC: JP.ED 23:12 | DX: F14.90 Cocaine use, unspecified, uncomplicated (principal); F12.90 Cannabis use, unspecified, uncomplicated; F15.90 Other stimulant use, unspecified, uncomplicated; I10 Essential (primary) hypertension; E66.9 Obesity, unspecified; Z68.31 Body mass index [BMI] 31.0-31.9, adult; Z79.01 Long term (current) use of anticoagulants | CPT/HCPCS: 36415; 70450; 80053; 80305-QW; 80307; 81001; 85025; 86140; 99283; 99284-25 ==

== ENCOUNTER 2021-12-04 06:04 | Emergency (ER) | payer MEDICARE, MEDICAID ==
[2021-12-04 07:16] LABS: CORONAVIRUS COVID-19 NAA NEGATIVE (NEGATIVE)
== END 2021-12-04 07:39 | disposition home or self-care (01) ==
LOC: JP.ED 06:04
DX: B34.9 Viral infection, unspecified (principal); I10 Essential (primary) hypertension; E66.9 Obesity, unspecified; Z68.25 Body mass index [BMI] 25.0-25.9, adult; Z79.899 Other long term (current) drug therapy; Z20.822 Contact with and (suspected) exposure to COVID-19
CPT/HCPCS: 0241U; 36415; 71046; 71046-26; 80053; 85025; 99282; 99283-25

== ENCOUNTER 2022-10-16 06:50 | Emergency (ER) | payer MEDICARE, MEDICAID ==
[2022-10-16] MEDS ORDERED: Metoprolol Tartrate 5 MG/5 ML SDV IVPUSH ONE (07:15)
[2022-10-16] MEDS ORDERED: Diltiazem 25 MG/5 ML SDV IVPUSH ONE ×2 (07:33→08:19)
[2022-10-16 07:41] LABS: ESTIMATED GFR 79 mL/min (>60); TROPONIN I HIGH SENSITIVITY 18.4 pg/mL (<=60.3)
[2022-10-16] MEDS ORDERED: Propofol 200 MG/20 ML SDV ONE (08:30)
== END 2022-10-16 10:50 | disposition home or self-care (01) ==
LOC: JP.ED 06:50
DX: I48.91 Unspecified atrial fibrillation (principal); I48.92 Unspecified atrial flutter; I10 Essential (primary) hypertension; J44.9 Chronic obstructive pulmonary disease, unspecified; E66.9 Obesity, unspecified; Z72.0 Tobacco use; Z68.36 Body mass index [BMI] 36.0-36.9, adult; Z79.01 Long term (current) use of anticoagulants; Z86.16 Personal history of COVID-19
CPT/HCPCS: 36415; 80053; 80305; 84484; 85025; 93005; 96374; 96375; 96376; 99285; J2704; J3490

== ENCOUNTER 2022-11-18 11:26 | Emergency (ER) | payer MEDICARE, MEDICAID ==
[2022-11-18 13:15] LABS: CORONAVIRUS COVID-19 NAA NEGATIVE (NEGATIVE)
== END 2022-11-18 13:45 | disposition home or self-care (01) ==
LOC: JP.ED 11:26
DX: J40 Bronchitis, not specified as acute or chronic (principal); I10 Essential (primary) hypertension; E66.9 Obesity, unspecified; Z68.42 Body mass index [BMI] 45.0-49.9, adult; Z79.01 Long term (current) use of anticoagulants; Z72.0 Tobacco use; Z86.16 Personal history of COVID-19; Z20.822 Contact with and (suspected) exposure to COVID-19
CPT/HCPCS: 0241U; 99283

== ENCOUNTER 2022-11-25 10:42 | Emergency (ER) | payer MEDICARE, MEDICAID ==
[2022-11-25 11:13] LABS: BASOPHILS PERCENT AUTO 0.3 % (0.1-1.3); EOSINOPHILS ABSOLUTE AUTO 0.03 K/uL (0.00-0.40); EOSINOPHILS PERCENT AUTO 0.4 % (0.0-5.4); HEMATOCRIT 44.5 % (38.4-49.7); HEMOGLOBIN 14.5 g/dL (12.9-16.9); IMMATURE GRAN ABSOLUTE AUTO 0.04 K/uL (0.00-0.23); IMMATURE GRAN PERCENT AUTO 0.5 % (0.0-0.7); LYMPHOCYTES PERCENT AUTO 31.4 % (11.4-47.7); MEAN CORPUSCULAR HEMOGLOBIN 29.8 pg (31.6-35.5); MEAN CORPUSCULAR HGB CONC 32.6 g/dL (31.6-35.5); MEAN CORPUSCULAR VOLUME 91.4 fL (81.4-99.0); MONOCYTES ABSOLUTE AUTO 0.47 K/uL (0.20-0.90); MONOCYTES PERCENT AUTO 6.1 % (3.3-12.6); NEUTROPHILS ABSOLUTE AUTO 4.69 K/uL (1.0-7.6); NEUTROPHILS PERCENT AUTO 61.3 % (40.0-78.1); PLATELET COUNT,PLT 237 K/uL (130-375); RED BLOOD CELL COUNT 4.87 M/uL (4.14-5.76); WHITE BLOOD CELL COUNT,WBC 7.7 K/uL (3.2-11.0)
[2022-11-25 11:14] LABS: BASOPHILS ABSOLUTE AUTO 0.02 K/uL (0.00-0.10)
[2022-11-25 11:33] LABS: AMPHETAMINES SCREEN, URINE NEGATIVE (NEGATIVE); BARBITURATE SCREEN,URINE NEGATIVE (NEGATIVE); BENZODIAZEPINES SCREEN,URINE NEGATIVE (NEGATIVE); METHADONE SCREEN, URINE NEGATIVE (NEGATIVE); METHAMPHETAMINES SCREEN, URINE NEGATIVE (NEGATIVE); OXYCODONE SCREEN,URINE NEGATIVE (NEGATIVE); PROPOXYPHENE SCREEN,URINE NEGATIVE (NEGATIVE); THC SCREEN,URINE 50 NG/ML NEGATIVE (NEGATIVE)
[2022-11-25 11:36] LABS: A/G RATIO 0.9 (1.2-2.2); ALANINE AMINOTRANSFERASE,ALT 87 U/L (12-78); ALBUMIN 3.6 g/dL (3.4-5.0); ALKALINE PHOSPHATASE 75 U/L (46-116); ASPARTATE AMNIOTRANSFERASE,AST 38 U/L (15-37); BILIRUBIN TOTAL 0.3 mg/dL (0.2-1.0); BLOOD UREA NITROGEN,BUN 16 mg/dL (7-18); CALCIUM 8.4 mg/dL (8.5-10.1); CARBON DIOXIDE,CO2 30 mmol/L (21-32); CHLORIDE,CL 101 mmol/L (100-108); CREATININE 1.1 mg/dL (0.8-1.3); EST CRCL DRUG DOSING (CG) 91.05 mL/min; ESTIMATED GFR 88 mL/min (>60); GLUCOSE RANDOM 140 mg/dL (74-106); POTASSIUM,K 3.8 mmol/L (3.6-5.2); PROTEIN TOTAL,TP 7.5 g/dL (6.4-8.2); SODIUM,NA 139 mmol/L (140-148); TROPONIN I HIGH SENSITIVITY 16.7 pg/mL (<=60.3)
[2022-11-25 11:37] LABS: ANION GAP 11.8 mmol/L (5.0-14.0)
[2022-11-25] MEDS ORDERED: Sodium Chloride 0.9% 10 ML Syringe FLUSH ONE (11:58)
[2022-11-25] MEDS ORDERED: Sodium Chloride 0.9% 75 ML IV ONE (11:58)
[2022-11-25] MEDS ORDERED: Iopamidol 755 Mg/ML 100 ML Bottle IV ONE (11:58)
== END 2022-11-25 13:49 | disposition home or self-care (01) ==
LOC: JP.ED 10:42
DX: J40 Bronchitis, not specified as acute or chronic (principal); E66.9 Obesity, unspecified; Z68.41 Body mass index [BMI] 40.0-44.9, adult; Z79.01 Long term (current) use of anticoagulants; Z86.16 Personal history of COVID-19; Z79.899 Other long term (current) drug therapy
CPT/HCPCS: 36415; 71046; 71275; 80053; 80305; 84484; 85025; 93005; 99285; J3490; Q9967

== ENCOUNTER 2024-12-15 17:03 | Emergency (ER) | payer MEDICARE, MEDICAID ==
[2024-12-15 18:43] LABS: BASOPHILS PERCENT AUTO 0.2 % (0.1-1.3); EOSINOPHILS ABSOLUTE AUTO 0.09 K/uL (0.00-0.40); EOSINOPHILS PERCENT AUTO 1.5 % (0.0-5.4); HEMATOCRIT 39.7 % (38.4-49.7); HEMOGLOBIN 12.9 g/dL (12.9-16.9); IMMATURE GRAN PERCENT AUTO 0.2 % (0.0-0.7); LYMPHOCYTES ABSOLUTE AUTO 2.36 K/uL (0.8-3.3); LYMPHOCYTES PERCENT AUTO 40.1 % (11.4-47.7); MEAN CORPUSCULAR HEMOGLOBIN 28.9 pg (31.6-35.5); MEAN CORPUSCULAR HGB CONC 32.5 g/dL (31.6-35.5); MONOCYTES PERCENT AUTO 8.5 % (3.3-12.6); NEUTROPHILS ABSOLUTE AUTO 2.92 K/uL (1.0-7.6); NEUTROPHILS PERCENT AUTO 49.5 % (40.0-78.1); PLATELET COUNT,PLT 183 K/uL (130-375); RED BLOOD CELL COUNT 4.46 M/uL (4.14-5.76); WHITE BLOOD CELL COUNT,WBC 5.9 K/uL (3.2-11.0)
[2024-12-15 18:45] LABS: BASOPHILS ABSOLUTE AUTO 0.01 K/uL (0.00-0.10); IMMATURE GRAN ABSOLUTE AUTO 0.01 K/uL (0.00-0.23)
[2024-12-15 19:16] LABS: A/G RATIO 0.9 (1.2-2.2); ALANINE AMINOTRANSFERASE,ALT 51 U/L (12-78); ALBUMIN 3.2 g/dL (3.4-5.0); ALKALINE PHOSPHATASE 75 U/L (46-116); ANION GAP 8.5 mmol/L (5.0-14.0); ASPARTATE AMNIOTRANSFERASE,AST 26 U/L (15-37); BILIRUBIN TOTAL 0.3 mg/dL (0.2-1.0); BLOOD UREA NITROGEN,BUN 16 mg/dL (7-18); CALCIUM 8.9 mg/dL (8.5-10.1); CARBON DIOXIDE,CO2 28 mmol/L (21-32); CHLORIDE,CL 104 mmol/L (100-108); EST CRCL DRUG DOSING (CG) 98.19 mL/min; ESTIMATED GFR 98 mL/min (>60); GLUCOSE RANDOM 167 mg/dL (74-106); POTASSIUM,K 3.6 mmol/L (3.6-5.2); PRO B-TYPE NATRIUR PEPT,BNPPRO 59 pg/mL (5-125); PROTEIN TOTAL,TP 6.9 g/dL (6.4-8.2); SODIUM,NA 140 mmol/L (140-148); TROPONIN I HIGH SENSITIVITY 12.6 pg/mL (<=60.3)
== END 2024-12-15 20:06 | disposition home or self-care (01) ==
LOC: JP.ED 17:03
DX: I87.2 Venous insufficiency (chronic) (peripheral) (principal); I48.91 Unspecified atrial fibrillation; I10 Essential (primary) hypertension; K21.9 Gastro-esophageal reflux disease without esophagitis; F17.200 Nicotine dependence, unspecified, uncomplicated; R06.9 Unspecified abnormalities of breathing; Z86.16 Personal history of COVID-19; Z79.01 Long term (current) use of anticoagulants; Z79.899 Other long term (current) drug therapy
CPT/HCPCS: 36415; 71046; 71046-26; 80053; 83605; 83880; 84484; 85025; 99283; 99285

== ENCOUNTER 2024-12-21 14:24 | Emergency (ER) | payer MEDICARE, MEDICAID ==
[2024-12-21 15:58] LABS: BASOPHILS PERCENT AUTO 0.2 % (0.1-1.3); EOSINOPHILS ABSOLUTE AUTO 0.06 K/uL (0.00-0.40); EOSINOPHILS PERCENT AUTO 0.7 % (0.0-5.4); HEMATOCRIT 43.9 % (38.4-49.7); HEMOGLOBIN 14.7 g/dL (12.9-16.9); IMMATURE GRAN PERCENT AUTO 0.2 % (0.0-0.7); LYMPHOCYTES ABSOLUTE AUTO 2.62 K/uL (0.8-3.3); LYMPHOCYTES PERCENT AUTO 28.8 % (11.4-47.7); MEAN CORPUSCULAR HEMOGLOBIN 29.3 pg (31.6-35.5); MEAN CORPUSCULAR HGB CONC 33.5 g/dL (31.6-35.5); MEAN CORPUSCULAR VOLUME 87.6 fL (81.4-99.0); MONOCYTES ABSOLUTE AUTO 0.81 K/uL (0.20-0.90); MONOCYTES PERCENT AUTO 8.9 % (3.3-12.6); NEUTROPHILS ABSOLUTE AUTO 5.56 K/uL (1.0-7.6); NEUTROPHILS PERCENT AUTO 61.2 % (40.0-78.1); PLATELET COUNT,PLT 248 K/uL (130-375); RED BLOOD CELL COUNT 5.01 M/uL (4.14-5.76); WHITE BLOOD CELL COUNT,WBC 9.1 K/uL (3.2-11.0)
[2024-12-21 16:08] LABS: A/G RATIO 0.8 (1.2-2.2); ALANINE AMINOTRANSFERASE,ALT 63 U/L (12-78); ALBUMIN 3.3 g/dL (3.4-5.0); ALKALINE PHOSPHATASE 73 U/L (46-116); ASPARTATE AMNIOTRANSFERASE,AST 42 U/L (15-37); BILIRUBIN TOTAL 0.4 mg/dL (0.2-1.0); BLOOD UREA NITROGEN,BUN 20 mg/dL (7-18); CALCIUM 9.2 mg/dL (8.5-10.1); CARBON DIOXIDE,CO2 25 mmol/L (21-32); CHLORIDE,CL 102 mmol/L (100-108); CREATININE 0.8 mg/dL (0.8-1.3); EST CRCL DRUG DOSING (CG) 122.74 mL/min; ESTIMATED GFR 115 mL/min (>60); GLUCOSE RANDOM 115 mg/dL (74-106); POTASSIUM,K 4.7 mmol/L (3.6-5.2); PROTEIN TOTAL,TP 7.7 g/dL (6.4-8.2); SODIUM,NA 136 mmol/L (140-148)
[2024-12-21 16:12] LABS: BASOPHILS ABSOLUTE AUTO 0.02 K/uL (0.00-0.10); IMMATURE GRAN ABSOLUTE AUTO 0.02 K/uL (0.00-0.23)
[2024-12-21 16:22] LABS: ANION GAP 13.7 mmol/L (5.0-14.0)
[2024-12-21] MEDS: Valproate Sodium 1,000 MG in Sodium Chloride 0.9% 100 ML IV ONE (17:55)
[2024-12-21] MEDS: Lidocaine 2% Jelly 10 ML Urojet MUCMEM ONE (19:32)
[2024-12-21 19:49] LABS: APPEARANCE,URINE CLEAR (CLEAR); BILIRUBIN,URINE NEGATIVE (NEGATIVE); COLOR,URINE YELLOW (YELLOW); GLUCOSE,URINE NEGATIVE (NEGATIVE); KETONES,URINE NEGATIVE (NEGATIVE); LEUKOCYTE ESTERASE,URINE NEGATIVE (NEGATIVE); NITRITE,URINE NEGATIVE (NEGATIVE); OCCULT BLOOD,URINE NEGATIVE (NEGATIVE); PH,URINE 5.5 (5.0-8.0); PROTEIN,URINE NEGATIVE (NEGATIVE); UROBILINOGEN,URINE 0.2 EU/dL (0.2-1.0)
[2024-12-21 19:57] LABS: RBC,URINE 0-5 (0-5); WBC,URINE 0-5 (0-5)
[2024-12-21 19:58] LABS: AMORPHOUS SEDIMENT,URINE NOT SEEN; AMPHETAMINES SCREEN, URINE NEGATIVE (NEGATIVE); BACTERIA,URINE RARE; BARBITURATE SCREEN,URINE NEGATIVE (NEGATIVE); BENZODIAZEPINES SCREEN,URINE NEGATIVE (NEGATIVE); EPITHELIAL CELLS,URINE FEW; METHADONE SCREEN, URINE NEGATIVE (NEGATIVE); METHAMPHETAMINES SCREEN, URINE NEGATIVE (NEGATIVE); MUCUS,URINE FEW; OXYCODONE SCREEN,URINE NEGATIVE (NEGATIVE); PROPOXYPHENE SCREEN,URINE NEGATIVE (NEGATIVE); THC SCREEN,URINE 50 NG/ML NEGATIVE (NEGATIVE)
== END 2024-12-21 21:19 | disposition home or self-care (01) ==
LOC: JP.ED 14:24
DX: G40.909 Epilepsy, unspecified, not intractable, without status epilepticus (principal); I10 Essential (primary) hypertension; J44.89 Other specified chronic obstructive pulmonary disease; E66.9 Obesity, unspecified; Z86.16 Personal history of COVID-19; Z79.899 Other long term (current) drug therapy
CPT/HCPCS: 36415; 80053; 80164; 80305-QW; 81001; 83605; 85025; 96365; 96366; 99284-25; J3490

== ENCOUNTER 2025-03-13 21:09 | Emergency (ER) | payer MEDICARE, MEDICAID ==
[2025-03-13 22:23] LABS: BASOPHILS PERCENT AUTO 0.3 % (0.1-1.3); EOSINOPHILS ABSOLUTE AUTO 0.05 K/uL (0.00-0.40); EOSINOPHILS PERCENT AUTO 0.7 % (0.0-5.4); IMMATURE GRAN ABSOLUTE AUTO 0.03 K/uL (0.00-0.23); IMMATURE GRAN PERCENT AUTO 0.4 % (0.0-0.7); LYMPHOCYTES ABSOLUTE AUTO 2.53 K/uL (0.8-3.3); LYMPHOCYTES PERCENT AUTO 37.7 % (11.4-47.7); MONOCYTES ABSOLUTE AUTO 0.57 K/uL (0.20-0.90); MONOCYTES PERCENT AUTO 8.5 % (3.3-12.6); NEUTROPHILS ABSOLUTE AUTO 3.51 K/uL (1.0-7.6); NEUTROPHILS PERCENT AUTO 52.4 % (40.0-78.1); PLATELET COUNT,PLT 174 K/uL (130-375); RED BLOOD CELL COUNT 4.55 M/uL (4.14-5.76); WHITE BLOOD CELL COUNT,WBC 6.7 K/uL (3.2-11.0)
[2025-03-13 22:24] LABS: BASOPHILS ABSOLUTE AUTO 0.02 K/uL (0.00-0.10)
[2025-03-13 22:43] LABS: A/G RATIO 0.8 (1.2-2.2); ALANINE AMINOTRANSFERASE,ALT 49 U/L (12-78); ASPARTATE AMNIOTRANSFERASE,AST 29 U/L (15-37); BILIRUBIN TOTAL 0.2 mg/dL (0.2-1.0); BLOOD UREA NITROGEN,BUN 18 mg/dL (7-18); CARBON DIOXIDE,CO2 31 mmol/L (21-32); CHLORIDE,CL 103 mmol/L (100-108); CREATININE 0.9 mg/dL (0.8-1.3); EST CRCL DRUG DOSING (CG) 109.10 mL/min; ESTIMATED GFR 111 mL/min (>60); GLUCOSE RANDOM 205 mg/dL (74-106); POTASSIUM,K 3.8 mmol/L (3.6-5.2); PROTEIN TOTAL,TP 7.4 g/dL (6.4-8.2); SODIUM,NA 140 mmol/L (140-148)
== END 2025-03-13 23:33 | disposition home or self-care (01) ==
LOC: JP.ED 21:09
DX: I87.2 Venous insufficiency (chronic) (peripheral) (principal); I10 Essential (primary) hypertension; J44.89 Other specified chronic obstructive pulmonary disease; K21.9 Gastro-esophageal reflux disease without esophagitis; F17.200 Nicotine dependence, unspecified, uncomplicated; Z79.899 Other long term (current) drug therapy; Z79.01 Long term (current) use of anticoagulants
CPT/HCPCS: 36415; 80053; 85025; 85379; 99283; A9270

== ENCOUNTER 2025-04-10 20:49 | Emergency (ER) | payer MEDICARE, MEDICAID ==
[2025-04-10 21:07] LABS: BASOPHILS PERCENT AUTO 0.3 % (0.1-1.3); EOSINOPHILS ABSOLUTE AUTO 0.08 K/uL (0.00-0.40); EOSINOPHILS PERCENT AUTO 1.1 % (0.0-5.4); IMMATURE GRAN PERCENT AUTO 0.3 % (0.0-0.7); LYMPHOCYTES ABSOLUTE AUTO 2.14 K/uL (0.8-3.3); LYMPHOCYTES PERCENT AUTO 30.7 % (11.4-47.7); MONOCYTES ABSOLUTE AUTO 0.68 K/uL (0.20-0.90); MONOCYTES PERCENT AUTO 9.7 % (3.3-12.6); NEUTROPHILS ABSOLUTE AUTO 4.04 K/uL (1.0-7.6); NEUTROPHILS PERCENT AUTO 57.9 % (40.0-78.1); PLATELET COUNT,PLT 206 K/uL (130-375); RED BLOOD CELL COUNT 4.99 M/uL (4.14-5.76); WHITE BLOOD CELL COUNT,WBC 7.0 K/uL (3.2-11.0)
[2025-04-10 21:08] LABS: BASOPHILS ABSOLUTE AUTO 0.02 K/uL (0.00-0.10); IMMATURE GRAN ABSOLUTE AUTO 0.02 K/uL (0.00-0.23)
[2025-04-10 21:28] LABS: A/G RATIO 0.7 (1.2-2.2); ALANINE AMINOTRANSFERASE,ALT 50 U/L (12-78); ASPARTATE AMNIOTRANSFERASE,AST 42 U/L (15-37); BILIRUBIN TOTAL 0.3 mg/dL (0.2-1.0); BLOOD UREA NITROGEN,BUN 15 mg/dL (7-18); CARBON DIOXIDE,CO2 30 mmol/L (21-32); CHLORIDE,CL 100 mmol/L (100-108); CREATININE 1.1 mg/dL (0.8-1.3); EST CRCL DRUG DOSING (CG) 89.27 mL/min; ESTIMATED GFR 87 mL/min (>60); GLUCOSE RANDOM 230 mg/dL (74-106); POTASSIUM,K 4.2 mmol/L (3.6-5.2); PROTEIN TOTAL,TP 8.2 g/dL (6.4-8.2); SODIUM,NA 140 mmol/L (140-148)
[2025-04-10 22:42] LABS: CORONAVIRUS COVID-19 NAA NEGATIVE (NEGATIVE); INFLUENZA A NAA NEGATIVE (NEGATIVE); INFLUENZA B NAA NEGATIVE (NEGATIVE); RESPIRATORY SYNCYTIAL VIR NAA NEGATIVE (NEGATIVE)
== END 2025-04-10 22:55 | disposition home or self-care (01) ==
LOC: JP.ED 20:49
DX: J06.9 Acute upper respiratory infection, unspecified (principal); J44.89 Other specified chronic obstructive pulmonary disease; K21.9 Gastro-esophageal reflux disease without esophagitis; F17.210 Nicotine dependence, cigarettes, uncomplicated; Z79.01 Long term (current) use of anticoagulants; Z79.899 Other long term (current) drug therapy; Z86.16 Personal history of COVID-19
CPT/HCPCS: 36415; 71045; 80053; 85025; 87637; 99283; U0002

== ENCOUNTER 2025-06-14 13:42 | Emergency (ER) | payer MEDICARE, MEDICAID | END 2025-06-14 16:04 | disposition home or self-care (01) | LOC: JP.ED 13:42 | DX: I87.2 Venous insufficiency (chronic) (peripheral) (principal); I80.01 Phlebitis and thrombophlebitis of superficial vessels of right lower extremity; I48.91 Unspecified atrial fibrillation; I10 Essential (primary) hypertension; J44.89 Other specified chronic obstructive pulmonary disease; K21.9 Gastro-esophageal reflux disease without esophagitis; F17.200 Nicotine dependence, unspecified, uncomplicated; Z79.01 Long term (current) use of anticoagulants; Z79.899 Other long term (current) drug therapy; Z86.16 Personal history of COVID-19 | CPT/HCPCS: 93971-26; 93971-RT; 99283 ==

== ENCOUNTER 2025-07-12 12:18 | Emergency (ER) | payer MEDICARE, MEDICAID ==
[2025-07-12] MEDS: LORazepam 2 MG/ML SDV IVPUSH ONE (13:23)
[2025-07-12 13:36] LABS: BASE EXCESS VENOUS 2.6 mm/L; BICARBONATE,VENOUS 27.1 mmol/L; O2 SATURATION VENOUS 80.0; OXYHEMOGLOBIN 76.4 %; PCO2 VENOUS 42.9 mm/Hg; PH,VENOUS 7.416 (7.350-7.450); PO2 VENOUS 47.5 mm/Hg; TOTAL HEMOGLOBIN 14.6 g/dL (13.5-18.0)
[2025-07-12 13:37] LABS: BASOPHILS PERCENT AUTO 0.3 % (0.1-1.3); EOSINOPHILS ABSOLUTE AUTO 0.04 K/uL (0.00-0.40); EOSINOPHILS PERCENT AUTO 0.5 % (0.0-5.4); IMMATURE GRAN PERCENT AUTO 0.3 % (0.0-0.7); LYMPHOCYTES ABSOLUTE AUTO 2.19 K/uL (0.8-3.3); LYMPHOCYTES PERCENT AUTO 28.1 % (11.4-47.7); MONOCYTES ABSOLUTE AUTO 0.73 K/uL (0.20-0.90); MONOCYTES PERCENT AUTO 9.4 % (3.3-12.6); NEUTROPHILS ABSOLUTE AUTO 4.79 K/uL (1.0-7.6); NEUTROPHILS PERCENT AUTO 61.4 % (40.0-78.1); PLATELET COUNT,PLT 200 K/uL (130-375); RED BLOOD CELL COUNT 4.89 M/uL (4.14-5.76); WHITE BLOOD CELL COUNT,WBC 7.8 K/uL (3.2-11.0)
[2025-07-12 13:39] LABS: BASOPHILS ABSOLUTE AUTO 0.02 K/uL (0.00-0.10); IMMATURE GRAN ABSOLUTE AUTO 0.02 K/uL (0.00-0.23)
[2025-07-12 13:53] VITALS: BP 129/63; PULSE 102
[2025-07-12 14:13] LABS: A/G RATIO 0.9 (1.2-2.2); ALANINE AMINOTRANSFERASE,ALT 69 U/L (12-78); ASPARTATE AMNIOTRANSFERASE,AST 72 U/L (15-37); BILIRUBIN TOTAL 0.6 mg/dL (0.2-1.0); BLOOD UREA NITROGEN,BUN 18 mg/dL (7-18); CARBON DIOXIDE,CO2 29 mmol/L (21-32); CHLORIDE,CL 103 mmol/L (100-108); CREATININE 1.0 mg/dL (0.8-1.3); EST CRCL DRUG DOSING (CG) 97.21 mL/min; ESTIMATED GFR 97 mL/min (>60); GLUCOSE RANDOM 191 mg/dL (74-106); POTASSIUM,K 3.8 mmol/L (3.6-5.2); PROTEIN TOTAL,TP 7.4 g/dL (6.4-8.2); SODIUM,NA 142 mmol/L (140-148); VALPROIC ACID 45.1 ug/mL (50.0-100.0)
[2025-07-12 14:24] LABS: AMPHETAMINES SCREEN, URINE PRESUMPTIVE POSITIVE (NEGATIVE); METHADONE SCREEN, URINE NEGATIVE (NEGATIVE); METHAMPHETAMINES SCREEN, URINE PRESUMPTIVE POSITIVE (NEGATIVE); OXYCODONE SCREEN,URINE NEGATIVE (NEGATIVE); PROPOXYPHENE SCREEN,URINE NEGATIVE (NEGATIVE); THC SCREEN,URINE 50 NG/ML NEGATIVE (NEGATIVE)
[2025-07-14 23:10] LABS: KEPPRA (LEVETIRACETAM) <2.0 ug/mL (10.0-40.0)
[2025-07-19 12:27] LABS: FELBAMATE <5 ug/mL (30-60)
== END 2025-07-12 15:12 | disposition home or self-care (01) ==
LOC: JP.ED 12:18
DX: R56.9 Unspecified convulsions (principal); I48.91 Unspecified atrial fibrillation; I10 Essential (primary) hypertension; J44.9 Chronic obstructive pulmonary disease, unspecified; K21.9 Gastro-esophageal reflux disease without esophagitis; E66.9 Obesity, unspecified; Z86.16 Personal history of COVID-19; F17.200 Nicotine dependence, unspecified, uncomplicated; Z79.899 Other long term (current) drug therapy; Z79.01 Long term (current) use of anticoagulants; Z68.41 Body mass index [BMI] 40.0-44.9, adult
CPT/HCPCS: 36415; 80053; 80164; 80167; 80177; 80305-QW; 80307; 82803; 83735; 85025; 93005; 93010; 96374; 99284; 99284-25; J2060